=== PATIENT | female | born 1985 | race Caucasian/White ===

== ENCOUNTER 2021-03-13 16:41 | Emergency (ER) | payer BC, SELFPAY ==
[2021-03-13] VITALS (7 sets, daily range): BP systolic 114–140; BP diastolic 69–91; PULSE 76–86; RESP 14–16; TEMP 36.6; O2SAT 94–100
[2021-03-13 18:32] LABS: Hematocrit 46.4 % (37.0-47.0); Hemoglobin 15.3 g/dL (12.0-15.0); Mean Corpuscular Hemoglobin 27.4 pg (26-34); Mean Platelet Volume 10.6 fl (7.4-10.4); Platelet Count Result 178 k/mm3 (150-375); Red Blood Count 5.59 M/mm3 (4.2-5.4); Red Cell Distribution Width 12.7 % (11.5-14.5); White Blood Count 10.3 K/mm3 (4.5-10.0)
--- NOTE | 2021-03-13 18:37 | ED.GENADULT ---
HPI - General Adult General Chief complaint: Nausea/Vomiting/Diarrhea Stated complaint: abdominal pain Time Seen by Provider: 03/13/21 16:51 Source: patient Mode of arrival: ambulatory Limitations: no limitations History of Present Illness HPI narrative: Patient presents for evaluation of GI symptoms as of today. She reports nausea, vomiting, abdominal cramping and diarrhea. She is not sure whether she has had any blood or mucous in the stool. She reports chills and fatigue but denies any fever, urinary symptoms or respiratory symptoms. No recent sick contacts to her knowledge. She did test positive for COVID on 03/01/21, however she states that the fevers and fatigue she was previously experiencing had fully resolved. Her COVID symptoms lasted about three days. She states she did eat some greasy pizza last night and is unsure whether that was contributory to her symptoms. In the past she has had GI symptoms when she consumes similar foods. No recent ETOH use. No hx of abdominal surgeries. Related Data Home Medications Medication Instructions Recorded Confirmed multivitamin 1 tablet PO DAILY 07/30/19 07/30/20 alprazolam 0.5 mg tablet 0.5 mg PO QHS PRN 06/04/20 07/30/20 Allergies Allergy/AdvReac Type Severity Reaction Status Date / Time No Known Allergies Allergy Unknown Verified 07/30/20 08:49 Review of Systems Review of Systems: CONSTITUTIONAL: Reports chills. Denies fever or sweats. EYES: Denies visual changes, redness, or discharge. ENT: Denies rhinorrhea, congestion, sore throat, or otalgia. CARDIOVASCULAR: Denies chest pain, palpitations, or edema. RESPIRATORY: Denies cough or dyspnea. GASTROINTESTINAL: Reports abdominal cramping, nausea, vomiting and diarrhea GENITOURINARY: Denies dysuria or hematuria. SKIN: Denies rash or itching. MUSCULOSKELETAL: Denies back pain, jointy pain, and myalgias NEUROLOGIC: Denies headache, numbness, dizziness, or weakness. PSYCHIATRIC: Denies anxiety or depression. [facility] Past Medical History Medical History Anxiety History of miscarriage x1 Hx of human papillomavirus infection Vaginal delivery x1 Surgical History Surgical History History of colposcopy 2018 negative Family History Family History Grandparent Diabetes mellitus Mother Hypertension Cerebrovascular accident Father Cerebrovascular accident Social History Social History (Updated 03/13/21 @ 18:39 by GERMAN Aguirre, ) Smoking status: Never smoker Smoking end date: 02/21/12 Alcohol intake: never Substance use: never Living arrangements: with family Gender identity (if verbalized by the patient): Female Sexual Orientation (if Verbalized by the Patient): Straight or Heterosexual Spiritual care concerns: No Exam Narrative: GENERAL: Visibly uncomfortable but in no apparent distress HEAD: Normocephalic, atraumatic. EYES: PERRLA and EOMI. ENT: Nares clear, no rhinorrhea or epistaxis. Mucous membranes moist. Oropharynx without tonsillar hypertrophy exudate or other lesions. Bilateral TMs pearly nielsen nonbulging NECK: Supple. No adenopathy or masses. No carotid bruits or JVD CHEST: Clear to auscultation. No respiratory distress. No wheezes rales or rhonchi HEART: Regular rate and rhythm. No murmur heard. Normal peripheral pulses. ABDOMEN: Soft, nontender, nondistended, normal active bowel sounds. EXTREMITIES: Normal range of motion. No edema. SKIN: Warm, dry, no rash. NEURO: No focal deficits. Alert and oriented x3. PSYCH: Normal mood and affect. Course Course Emergency Course: This is a 35-year-old female who presented with complaints of nausea, vomiting, abdominal cramping, diarrhea as of today. Initially recommended labs, CT scan, influenza swab. She was agreeable to labs and influenz
[2021-03-13 18:43] LABS: Alanine Aminotransferase 15 U/L (4-35); Albumin Level 4.3 g/dL (3.5-5.1); Alkaline Phosphatase 57 U/L (38-126); Anion Gap 9 mmol/L (8-16); Aspartate Amino Transferase 23 U/L (14-36); Bilirubin,Total 0.9 mg/dL (0.2-1.3); Blood Urea Nitrogen 17 mg/dL (7-17); Calcium 8.9 mg/dL (8.4-10.2); Carbon Dioxide 25 mmol/L (22-30); Chloride 101 mmol/L (98-107); Estimated CRCL calculation 73 ml/min; Estimated Glomerular Filt Rate > 60; Glucose 107 mg/dL (65-110); Lipase 74 U/L (23-300); Potassium 4.4 mmol/L (3.4-5.0); Sodium 135 mmol/L (137-145)
[2021-03-13 18:59] LABS: Band Neutrophils Percent 4 % (0-6); Monocytes Percent Manual 2 % (3-9); Neutrophils Absolute Manual 9.99 K/mm3 (1.7-7.2); Neutrophils Percent Manual 93 % (46-73); Platelet Estimate Adequate (Adequate); Total Cells Counted 100
[2021-03-13] MEDS: SODIUM CHLORIDE 0.9% IV 1,000 ML 999 ML IV CONT (19:05)
[2021-03-13] MEDS: FAMOTIDINE 20 MG/2 ML VIAL IV PUSH (19:06)
[2021-03-13] MEDS: ONDANSETRON INJ 4 MG/2 ML VIAL IV PUSH (19:06)
[2021-03-13 19:43] LABS: Add Urine Microscopic? YES; Appearance Urine Clear (Clear); Bilirubin Urine Negative (Negative); Blood Urine Negative (Negative); Color Urine Yellow (Yellow); Glucose Urine UA Negative (Negative); Ketones Urine 1+ mg/dL (Negative); Leukocyte Esterase Ur Negative LEU/UL (Negative); Mucus Urine Rare /lpf; Nitrate Urine Negative (Negative); Protein Urine Negative (Negative); RBC Urine 0-2 /hpf (0-2); Specific Grav Ur 1.026 (1.001-1.035); Squamous Epithelial Cell Urine Moderate /hpf (Few); Urobilinogen Urine Negative mg/dL (<2.0); WBC Urine 0-3 /hpf
[2021-03-13] MEDS: DICYCLOMINE HCL INJ 20 MG/2 ML VIAL IM (20:11)
== END 2021-03-13 21:43 | disposition home or self-care (01) ==
PROVIDERS: Emergency Provider Nurse Practitioner; PCP Family Medicine
DX: R11.2 Nausea with vomiting, unspecified (principal); F41.9 Anxiety disorder, unspecified; Z87.891 Personal history of nicotine dependence; Z86.16 Personal history of COVID-19
CPT/HCPCS: 36415; 80053; 81001; 81025; 83690; 85025; 87804; 96361; 96372; 96374; 99284; J0500; J2405; J7030

== ENCOUNTER 2022-05-04 09:55 | Outpatient (RCR) | payer BC, SELFPAY ==
[2022-05-04] MEDS: RHO(D) IMMUNE GLOBULIN 300 MCG/2 ML SYRINGE IM (12:33)
== END 2022-08-02 23:59 | disposition home or self-care (01) ==
LOC: ANHLAB 09:55
PROVIDERS: PCP Family Medicine; Visit Provider Obstetrics & Gynecology
DX: Z29.13 Encounter for prophylactic Rho(D) immune globulin (principal); O36.0190 Maternal care for anti-D [Rh] antibodies, unspecified trimester, not applicable or unspecified; Z3A.00 Weeks of gestation of pregnancy not specified
CPT/HCPCS: 36415; 85461; 86850; 86900; 86901; 90384; 96372; J2790

== ENCOUNTER 2022-07-15 11:27 | Inpatient (IN) | payer BC, SELFPAY ==
[2022-07-15] VITALS (20 sets, daily range): BP systolic 123–156; BP diastolic 80–100; PULSE 81–113; RESP 18; TEMP 36.4–36.6; O2SAT 93–100
[2022-07-15 12:57] LABS: Basophils Percent Auto 0.1 % (0.2-1.2); Eosinophils Absolute Auto 0.1 K/mm3 (0-0.3); Eosinophils Percent Auto 0.5 % (0-4.4); Hematocrit 42.4 % (37.0-47.0); Hemoglobin 14.6 g/dL (12.0-15.0); Immature Granulocyte Absolute 0.06 K/mm3 (0.00-0.031); Immature Granulocyte Percent A 0.4 % (0-0.5); Immature Platelet Fraction Pct 11.1 % (0.9-11.2); Lymphocytes Percent Auto 9.6 % (18.3-44.2); Mean Corpuscular HGB Conc 34.4 g/dl (32-36); Mean Corpuscular Hemoglobin 30.1 pg (26-34); Mean Corpuscular Volume 87.4 fl (80-100); Mean Platelet Volume 11.9 fl (7.4-10.4); Monocytes Absolute Auto 0.8 K/mm3 (0.1-0.6); Monocytes Percent Auto 5.9 % (2.6-8.5); Neutrophils Absolute Auto 11.3 K/mm3 (1.3-6.7); Neutrophils Percent Auto 83.5 % (45.5-73.1); Platelet Count Result 146 k/mm3 (150-375); Red Blood Count 4.85 M/mm3 (4.2-5.4); Red Cell Distribution Width 13.2 % (11.5-14.5); White Blood Count 13.5 K/mm3 (4.5-10.0)
[2022-07-15 13:09] LABS: Creatinine Urine 47.3 mg/dL; Total Protein Urine Random 8 mg/dL; Ur Ttl Prot Creatinine Ratio 0.17 mg/mg (0-0.20)
[2022-07-15] MEDS: LACTATED RINGERS 1,000 ML 125 ML IV CONT (13:09)
[2022-07-15] MEDS: AMPICILLIN 2 GM/NS 100 ML 2 GM/100 ML BAG IVPB (13:10)
[2022-07-15 13:11] LABS: Alanine Aminotransferase 17 U/L (6-35); Alkaline Phosphatase 143 U/L (38-126); Anion Gap 7 mmol/L (8-16); Aspartate Amino Transferase 23 U/L (14-36); Bilirubin,Total 0.5 mg/dL (0.2-1.3); Blood Urea Nitrogen 10 mg/dL (7-17); Calcium 8.8 mg/dL (8.4-10.2); Carbon Dioxide 21 mmol/L (22-30); Chloride 105 mmol/L (98-107); Estimated Glomerular Filt Rate > 60; Glucose 77 mg/dL (65-110); Potassium 4.1 mmol/L (3.4-5.0); Sodium 133 mmol/L (137-145); Uric Acid 3.6 mg/dL (2.5-7.5)
[2022-07-15 13:18] LABS: Appearance Urine Cloudy (Clear); Bacteria Urine None Seen /hpf; Bilirubin Urine Negative (Negative); Blood Urine Negative (Negative); Color Urine Yellow (Yellow); Glucose Urine UA Negative (Negative); Ketones Urine Negative (Negative); Leukocyte Esterase Ur Negative LEU/UL (NEGATIVE); Need Manual Microscopic Reviewed; Nitrate Urine Negative (Negative); Non Pathogenic Casts 0-2; Protein Urine Negative (Negative); RBC Urine 0-2 /hpf (0-2); Squamous Epithelial Cell Urine Occasional /hpf (Few); Urobilinogen Urine 0.2 mg/dL (<2.0); WBC Urine 0-5 /hpf (0-3); pH Urine 7.5 (5.0-9.0)
[2022-07-15 13:24] LABS: Add Urine Microscopic? YES
[2022-07-15] MEDS: AMPICILLIN 1 GM/NS 50 ML 1 GM/50 ML BAG IVPB (17:23)
--- NOTE | 2022-07-15 17:29 | WPDANESEPPF ---
Anes - Initial Pre Proc Eval Procedure: Labor epidural Date/Time: 07/15/22 17:29 Surgeon: Rohan Hermosillo MD Pre Op Diagnosis: Abdominal pain with contractions Pre Op Diagnosis: labor Patient Data Age: 37 Gender: F Height: Weight: Last Vital Signs Pulse 85 07/15/22 14:15 BP 127/87 07/15/22 14:15 O2 Del Method Room Air 07/15/22 11:30 Allergies Allergy/AdvReac Type Severity Reaction Status Date / Time No Known Allergies Allergy Unknown Verified 07/14/22 08:44 Home Medications Medication Instructions Recorded Confirmed Type prenat.vits,dc,jlk-uzce-dzrwx 1 tablet PO DAILY 12/23/21 07/15/22 History aspirin 81 mg tablet,delayed 81 mg PO DAILY 04/21/22 07/15/22 History release Laboratory Tests 07/15/22 12:47 WBC 13.5 H K/mm3 (4.5-10.0) RBC 4.85 M/mm3 (4.2-5.4) Hgb 14.6 g/dL (12.0-15.0) Hct 42.4 % (37.0-47.0) MCV 87.4 fl (80-100) MCH 30.1 pg (26-34) MCHC 34.4 g/dl (32-36) RDW 13.2 % (11.5-14.5) Plt Count 146 L k/mm3 (150-375) MPV 11.9 H fl (7.4-10.4) Immature Gran % (Auto) 0.4 % (0-0.5) Neut % (Auto) 83.5 H % (45.5-73.1) Lymph % (Auto) 9.6 L % (18.3-44.2) [place] % (Auto) 5.9 % (2.6-8.5) Eos % (Auto) 0.5 % (0-4.4) Baso % (Auto) 0.1 L % (0.2-1.2) Lymph # (Auto) 1.30 K/mm3 (0.9-3.2) [place] # (Auto) 0.8 H K/mm3 (0.1-0.6) Eos # (Auto) 0.1 K/mm3 (0-0.3) Baso # (Auto) 0.0 K/mm3 (0.0-0.1) Abs Immat Gran (auto) 0.06 H K/mm3 (0.00-0.031) Absolute Neuts (auto) 11.3 H K/mm3 (1.3-6.7) Absolute Nucleated RBC 0.0 K/mm3 (0.0-0.012) Nucleated RBC % 0.0 % (0.0-0.2) % Immature Plt Fraction 11.1 % (0.9-11.2) Sodium 133 L mmol/L (137-145) Potassium 4.1 mmol/L (3.4-5.0) Chloride 105 mmol/L (98-107) Carbon Dioxide 21 L mmol/L (22-30) Anion Gap 7 L mmol/L (8-16) BUN 10 D mg/dL (7-17) Creatinine 0.50 L mg/dL (0.7-1.0) Estim Creat Clear Calc Not Reportable Estimated GFR > 60 (59 - ) Glucose 77 mg/dL (65-110) Uric Acid 3.6 mg/dL (2.5-7.5) Calcium 8.8 mg/dL (8.4-10.2) Total Bilirubin 0.5 mg/dL (0.2-1.3) AST 23 U/L (14-36) ALT 17 U/L (6-35) Alkaline Phosphatase 143 H U/L (38-126) Total Protein 7.0 g/dL (6.3-8.2) Albumin 4.0 g/dL (3.5-5.1) Urine Color Yellow (Yellow) Urine Appearance Cloudy H (Clear) Urine pH 7.5 (5.0-9.0) Ur Specific [place] 1.010 (1.001-1.035) Urine Protein Negative mg/dL (Negative) Urine Glucose (UA) Negative mg/dL (Negative) Urine Ketones Negative mg/dL (Negative) Ur Blood (Man) Negative (Negative) Urine Nitrate Negative (Negative) Urine Bilirubin Negative (Negative) Urine Urobilinogen 0.2 mg/dL (<2.0) Ur Leukocyte Esterase Negative MAGALIS/UL (NEGATIVE) Add Ur Microanalysis Reviewed Urine RBC 0-2 /hpf (0-2) Urine WBC 0-5 /hpf (0-3) Ur Squamous Epith Cells Occasional /hpf (Few) Urine Bacteria None seen /hpf Urine Casts 0-2 U Random Total Protein 8 mg/dL Urine Creatinine 47.3 mg/dL Protein/Creat Ratio 2 0.17 mg/mg (0-0.20) RPR Pending Blood Type A Negative Antibody Screen Positive Antibody Identification Passive Due to RH Imm Glob Antigen Identification TNP STEFAN, IgG Interpret Not Performed STEFAN, Poly Interpret Negative STEFAN, Complement Interp Not Performed : gestational age HCG: positive Patient hx anesthesia problems: none Family hx anesthesia problems: none Results Review: All pre-operative results and documents have been reviewed as part of the pre-operative evaluation. [facility], LAT[facility] Past Medical History Medical History Anxiety Fractured skull Rhinoplasty and cyst removed from nasal cavity.
--- NOTE | 2022-07-15 19:06 | PM.IMHP ---
H&P: HPI History of Present Illness Date/Time: 07/15/22 19:06 Chief Complaint: Contractions Narrative: She is a 37 y/o at 38 6/7 by LMP 10/16/21 with EDC 07/23/22 consistent with 10 week ultrasound. Patient admitted in labor. Cervix 4/80/-2. PNC significant for advanced maternal age, GBS carrier, prior mild shoulder dystocia, she has been counseled regarding increase risk with subsequent and discussed c/s she declined. The abdominal circumference has been measuring in 90% she has had normal routine glucose testing and then normal 3 hr in third trimester. Review of Systems Review of Systems: All systems reviewed & are unremarkable except as noted in HPI and below Constitutional: Constitutional: Reports no additional constitutional complaints and Denies headache(s) Eyes: Eyes: Denies spots in vision ENT: Reports system reviewed and no additional complaints, except as documented and Denies headache(s) Cardiovascular: Cardiovascular: Denies chest pain and Denies dyspnea Respiratory: Respiratory: Denies dyspnea Gastrointestinal: Gastrointestinal: Reports no additional gastrointestinal complaints Genitourinary: Genitourinary: Reports amenorrhea Musculoskeletal: Musculoskeletal: Reports no additional musculoskeletal complaints Integumentary/Breasts: Skin/Breast: Denies breast mass and Denies rash Neurologic: Denies headache(s) Psychiatric: Psychiatric: Reports no additional psychiatric complaints PMFSH Past Medical History Medical History Anxiety Fractured skull Rhinoplasty and cyst removed from nasal cavity. History of miscarriage x1 History of smoking Hx of human papillomavirus infection and not yet delivered Vaginal delivery x1 Surgical History Surgical History History of colposcopy 2018 negative Family History Family History Grandparent Diabetes mellitus Alcoholism Heart disease Mother Hypertension Cerebrovascular accident Father Cerebrovascular accident Social History Social History Smoking status: Former smoker Tobacco type: cigarettes Smoking end date: 02/21/12 Alcohol intake: never Substance use: never Lack of Transportation: No Lack of Food: Never True Current Housing: I Have Housing Concerned About Future Housing: No Difficulty Paying Gas/Electric Bills: No Difficulty Paying for Meds: No Currently Unemployed: No Education: Bachelor's Degree Difficulty w/ Childcare or Family Care: No Living arrangements: with family Occupation/Education: occupation Gender identity (if verbalized by the patient): Female Sexual Orientation (if Verbalized by the Patient): Straight or Heterosexual Spiritual care concerns: No Meds Home Medications and Allergies Home Medications Medication Instructions Recorded Confirmed Type prenat.vits,dc,xgm-lall-xmreo 1 tablet PO DAILY 12/23/21 07/15/22 History aspirin 81 mg tablet,delayed 81 mg PO DAILY 04/21/22 07/15/22 History release Allergies Allergy/AdvReac Type Severity Reaction Status Date / Time No Known Allergies Allergy Unknown Verified 07/14/22 08:44 Vital Signs Vital Signs - 24 hr 07/15/22 12:56 07/15/22 13:00 07/15/22 13:15 Temperature Pulse Rate 92 81 89 Blood Pressure 128/100 H 123/80 127/91 H Oxygen Delivery 07/15/22 13:30 07/15/22 13:45 07/15/22 14:01 Temperature Pulse Rate 85 83 89 Blood Pressure 123/91 H 133/98 H 127/90 Oxygen Delivery 07/15/22 14:15 07/15/22 16:00 07/15/22 17:59 Temperature 97.8 F Pulse Rate 85 96 Blood Pressure 127/87 123/84 Oxygen Delivery 07/15/22 18:00 07/15/22 11:30 Temperature Pulse Rate 85 Blood Pressure 132/84 Oxygen Delivery Room Air Exam Const:
--- NOTE | 2022-07-15 19:09 | P.PNOB_ITS ---
OB - PN: Subj Subjective Date/time seen: 07/15/22 1340 Cat 1 tracing, irreg ctx, continue expectant management and IV antibiotics. OB - PN: Obj Data Labs 07/15/22 12:47 07/15/22 12:47 Labs: Laboratory Results - last 24 hr 07/15/22 12:47 WBC 13.5 H RBC 4.85 Hgb 14.6 Hct 42.4 MCV 87.4 MCH 30.1 MCHC 34.4 RDW 13.2 Plt Count 146 L MPV 11.9 H Immature Gran % (Auto) 0.4 Neut % (Auto) 83.5 H Lymph % (Auto) 9.6 L [place] % (Auto) 5.9 Eos % (Auto) 0.5 Baso % (Auto) 0.1 L Lymph # (Auto) 1.30 [place] # (Auto) 0.8 H Eos # (Auto) 0.1 Baso # (Auto) 0.0 Abs Immat Gran (auto) 0.06 H Absolute Neuts (auto) 11.3 H Absolute Nucleated RBC 0.0 Nucleated RBC % 0.0 % Immature Plt Fraction 11.1 Sodium 133 L Potassium 4.1 Chloride 105 Carbon Dioxide 21 L Anion Gap 7 L BUN 10 D Creatinine 0.50 L Estim Creat Clear Calc Not Reportable Estimated GFR > 60 Glucose 77 Uric Acid 3.6 Calcium 8.8 Total Bilirubin 0.5 AST 23 ALT 17 Alkaline Phosphatase 143 H Total Protein 7.0 Albumin 4.0 Urine Color Yellow Urine Appearance Cloudy H Urine pH 7.5 Ur Specific [place] 1.010 Urine Protein Negative Urine Glucose (UA) Negative Urine Ketones Negative Ur Blood (Man) Negative Urine Nitrate Negative Urine Bilirubin Negative Urine Urobilinogen 0.2 Ur Leukocyte Esterase Negative Add Ur Microanalysis Reviewed Urine RBC 0-2 Urine WBC 0-5 Ur Squamous Epith Cells Occasional Urine Bacteria None seen Urine Casts 0-2 U Random Total Protein 8 Urine Creatinine 47.3 Protein/Creat Ratio 2 0.17 Blood Type A Negative Antibody Screen Positive Antibody Identification Passive Due to RH Imm Glob Antigen Identification TNP STEFAN, IgG Interpret Not Performed STEFAN, Poly Interpret Negative STEFAN, Complement Interp Not Performed OB - PN A/P Time Spent With Patient Time: Total time spent is greater than 50% in coordination of care (as documented) at patient's floor/unit and/or counseling patient:
--- NOTE | 2022-07-15 19:10 | P.PNOB_ITS ---
OB - PN: Subj Subjective Date/time seen: 07/15/22 19:10 Interval history: FHT 145, Cat 1, irreg ctx. cervix /-2, AROM clear. OB - PN: Obj Data Labs 07/15/22 12:47 07/15/22 12:47 Labs: Laboratory Results - last 24 hr 07/15/22 12:47 WBC 13.5 H RBC 4.85 Hgb 14.6 Hct 42.4 MCV 87.4 MCH 30.1 MCHC 34.4 RDW 13.2 Plt Count 146 L MPV 11.9 H Immature Gran % (Auto) 0.4 Neut % (Auto) 83.5 H Lymph % (Auto) 9.6 L [place] % (Auto) 5.9 Eos % (Auto) 0.5 Baso % (Auto) 0.1 L Lymph # (Auto) 1.30 [place] # (Auto) 0.8 H Eos # (Auto) 0.1 Baso # (Auto) 0.0 Abs Immat Gran (auto) 0.06 H Absolute Neuts (auto) 11.3 H Absolute Nucleated RBC 0.0 Nucleated RBC % 0.0 % Immature Plt Fraction 11.1 Sodium 133 L Potassium 4.1 Chloride 105 Carbon Dioxide 21 L Anion Gap 7 L BUN 10 D Creatinine 0.50 L Estim Creat Clear Calc Not Reportable Estimated GFR > 60 Glucose 77 Uric Acid 3.6 Calcium 8.8 Total Bilirubin 0.5 AST 23 ALT 17 Alkaline Phosphatase 143 H Total Protein 7.0 Albumin 4.0 Urine Color Yellow Urine Appearance Cloudy H Urine pH 7.5 Ur Specific [place] 1.010 Urine Protein Negative Urine Glucose (UA) Negative Urine Ketones Negative Ur Blood (Man) Negative Urine Nitrate Negative Urine Bilirubin Negative Urine Urobilinogen 0.2 Ur Leukocyte Esterase Negative Add Ur Microanalysis Reviewed Urine RBC 0-2 Urine WBC 0-5 Ur Squamous Epith Cells Occasional Urine Bacteria None seen Urine Casts 0-2 U Random Total Protein 8 Urine Creatinine 47.3 Protein/Creat Ratio 2 0.17 Blood Type A Negative Antibody Screen Positive Antibody Identification Passive Due to RH Imm Glob Antigen Identification TNP STEFAN, IgG Interpret Not Performed STEFAN, Poly Interpret Negative STEFAN, Complement Interp Not Performed OB - PN A/P Time Spent With Patient Time: Total time spent is greater than 50% in coordination of care (as documented) at patient's floor/unit and/or counseling patient:
[2022-07-15] MEDS: OXYTOCIN 30 UNITS/NS 500 ML 30 UNITS/500 ML BAG 999 UNITS IV CONT (19:57)
--- NOTE | 2022-07-15 20:19 | P.PCNOB_ITS ---
OB - Delivery Note Procedure Delivery date: 07/15/22 Procedure: Spontaneous vaginal delivery Events: Positive Group B Strep (GBS) Delivery augmentation: Rupture of Membranes Delivery monitor: External FHT Route of delivery: Laceration Description: Perineal - 2nd Degree Delivery repair: vicryl (3.0 vicryl) Specimen: No Quantitative Blood Loss (ml): 300 Anesthesia type: Local Disposition: Floor Complications: Mild shoulder dystocia relieved with Modified Fatmata position. Narrative: She presented in active labor. She received two doses of Ampicillin. Assisted rupture of membranes with clear fluid at 5. She progressed rapidly to active labor and complete. Infant's head delivered and legs were placed into modified Fatmata when a nterior shoulder did not present spontaneously and then shoulder delivered. There was a right compound hand presentation. The rest of the delivered. Nose and mouth suctioned. Infant vigorously crying and placed on maternal abdomen. Delayed cord clamping for 40 sec and then cord doubly clamped and cut. Pitocin started. Placenta delivered spontaneously and intact. Second degree perineal laceration repaired with 3.0 vicryl. Baby Date of : 07/15/22 Time of : 19:52 Weeks of gestation at delivery: 39 gender: Male Weight (pounds): 7 Weight (ounces): 14 presentation: vertex position: Left Occiput Anterior Placenta delivery description: Spontaneous Cord Vessel Description: 3 Vessels, Clamped/Cut and Delayed Cord Clamping score one minute: 7 score five minutes: 9 AMG Delivery Billing Delivery Delivery: Delivery Charge
[2022-07-15] MEDS: OXYTOCIN 30 UNITS/NS 500 ML 30 UNITS/500 ML BAG 125 UNITS IV CONT (20:33)
[2022-07-16 03:00] VITALS: BP 136/98; PULSE 101; RESP 18; TEMP 37; O2SAT 100
[2022-07-16] MEDS: IBUPROFEN 600 MG TABLET PO ×3 (03:22→20:38)
[2022-07-16 05:43] LABS: Hematocrit 37.1 % (37.0-47.0); Hemoglobin 12.4 g/dL (12.0-15.0)
[2022-07-16 08:00] VITALS: BP 123/81; PULSE 93; RESP 16; TEMP 36.3; O2SAT 99
--- NOTE | 2022-07-16 10:47 | PM.OBPNVD ---
OB - PN: Subj Subjective Date/time seen: 07/16/22 10:47 S: patient doing well this morning with minimal bleeding, pain well controlled. is going well though recent feeding was slow and delayed. Otherwise she is doing well. O: Vital signs stable afebrile Abdomen positive bowel sounds soft uterus mildly tender A: day 1. Status post vaginal delivery P: Routine care. Circumcision later today or tomorrow prior to discharge. Interval history: FHT 145, Cat 1, irreg ctx. cervix 5/80/-2, AROM clear. OB - PN: Obj Data Labs 07/16/22 03:30 07/15/22 12:47 Labs: Laboratory Results - last 24 hr 07/15/22 07/16/22 12:47 03:30 WBC 13.5 H RBC 4.85 Hgb 14.6 12.4 Hct 42.4 37.1 MCV 87.4 MCH 30.1 MCHC 34.4 RDW 13.2 Plt Count 146 L MPV 11.9 H Immature Gran % (Auto) 0.4 Neut % (Auto) 83.5 H Lymph % (Auto) 9.6 L [place] % (Auto) 5.9 Eos % (Auto) 0.5 Baso % (Auto) 0.1 L Lymph # (Auto) 1.30 [place] # (Auto) 0.8 H Eos # (Auto) 0.1 Baso # (Auto) 0.0 Abs Immat Gran (auto) 0.06 H Absolute Neuts (auto) 11.3 H Absolute Nucleated RBC 0.0 Nucleated RBC % 0.0 % Immature Plt Fraction 11.1 Sodium 133 L Potassium 4.1 Chloride 105 Carbon Dioxide 21 L Anion Gap 7 L BUN 10 D Creatinine 0.50 L Estim Creat Clear Calc Not Reportable Estimated GFR > 60 Glucose 77 Uric Acid 3.6 Calcium 8.8 Total Bilirubin 0.5 AST 23 ALT 17 Alkaline Phosphatase 143 H Total Protein 7.0 Albumin 4.0 Urine Color Yellow Urine Appearance Cloudy H Urine pH 7.5 Ur Specific [place] 1.010 Urine Protein Negative Urine Glucose (UA) Negative Urine Ketones Negative Ur Blood (Man) Negative Urine Nitrate Negative Urine Bilirubin Negative Urine Urobilinogen 0.2 Ur Leukocyte Esterase Negative Add Ur Microanalysis Reviewed Urine RBC 0-2 Urine WBC 0-5 Ur Squamous Epith Cells Occasional Urine Bacteria None seen Urine Casts 0-2 U Random Total Protein 8 Urine Creatinine 47.3 Protein/Creat Ratio 2 0.17 Blood Type A Negative Antibody Screen Positive Antibody Identification Passive Due to RH Imm Glob Antigen Identification TNP STEFAN, IgG Interpret Not Performed STEFAN, Poly Interpret Negative STEFAN, Complement Interp Not Performed OB - PN A/P Time Spent With Patient Time: Total time spent is greater than 50% in coordination of care (as documented) at patient's floor/unit and/or counseling patient:
[2022-07-16 12:30] VITALS: BP 122/91; PULSE 88; RESP 16; TEMP 36.5; O2SAT 99
[2022-07-16] MEDS: DOCUSATE SODIUM 100 MG CAPSULE PO (12:38)
[2022-07-16] MEDS: MULTIVIT/MIN/PREN/FOL AC/IRON TABLET 1 TAB PO (12:38)
[2022-07-16 21:00] VITALS: BP 128/92; PULSE 85; RESP 18; TEMP 36.5; O2SAT 97
[2022-07-17] MEDS: IBUPROFEN 600 MG TABLET PO ×2 (03:45→13:35)
[2022-07-17 08:00] VITALS: BP 117/87; PULSE 91; RESP 16; TEMP 36.7; O2SAT 98
--- NOTE | 2022-07-17 08:33 | P.DS_ITS ---
DS: Admitting Diagnosis Discharge Date 07/17/2022 Admitting Diagnosis DS: Discharge Diagnosis Discharge Diagnosis (1) , delivered: Code(s): O80 - Encounter for full-term uncomplicated delivery Status: Acute OB - DS: Summary OB Procedures : None OB Procedures Intrapartum: Spontaneous Vag Delivery OB Procedures: : None Time Spent with Patient Time attestation: Total time spent providing and/or coordinating discharge services: Discharge Plan Discharge Discharging Clinician: Sarwat Sun Patient Disposition: Home, Self-Care Activity: as tolerated Diet: as tolerated Patient Instructions: Antibiotic Form Stand Alone Forms: General Discharge Information Follow-up/Referrals: Rohan Hermosillo MD [Physician] - 3 Weeks Discharge Medications: New ibuprofen 600 mg Tablet 600 mg PO Q6H PRN (Reason: Cramping) Qty: 30 0RF Continued prenat.vits,dc,wyd-ntor-yspry Tablet 1 tablet PO DAILY Discontinued aspirin 81 mg tablet,delayed release (DR/EC) 81 mg PO DAILY Date of admission: 07/15/22 11:27 Primary Care Provider: PHYSICIAN,SUPERVISOR SH[employer]TLE [employer]ING Admitting Provider: Rohan Hermosillo Attending physician on admission: Rohan Hermsoillo Condition: Stable
[2022-07-17] MEDS: DOCUSATE SODIUM 100 MG CAPSULE PO (10:43)
[2022-07-17] MEDS: MULTIVIT/MIN/PREN/FOL AC/IRON TABLET 1 TAB PO (10:43)
--- NOTE | 2022-07-17 12:18 | PC.NURSE ---
Patient was given the opportunity to view the discharge video Mother & Baby Care, The First Two Weeks and to ask questions. Patient declined viewing the video and has been given the mother/baby guide for home reference.
[2022-07-17] MEDS: MEASLES,MUMPS,RUBELLA VACCINE 0.5 ML VIAL SUB-Q (13:05)
[2022-07-17] MEDS: ACETAMINOPHEN 325 MG TABLET 650 MG PO (13:35)
[2022-07-18 11:48] LABS: Rapid Plasma Reagin Non-Reactive (NonReactive)
== END 2022-07-17 14:25 | disposition home or self-care (01) | DRG 807 ==
LOC: ANHOB2 07-17 12:23 → ANHLDR 07-20 09:25 → ANHOB2 07-20 09:25
PROVIDERS: Admitting Provider Obstetrics & Gynecology; Visit Provider Obstetrics & Gynecology
DX: O99.824 Streptococcus B carrier state complicating childbirth (principal); Z37.0 Single live birth; Z3A.38 38 weeks gestation of pregnancy; O32.6XX0 Maternal care for compound presentation, not applicable or unspecified; O70.1 Second degree perineal laceration during delivery; O66.0 Obstructed labor due to shoulder dystocia
CPT/HCPCS: 36415; 80053; 81001; 82570; 84156; 84550; 85014; 85018; 85025; 85055; 86592; 86850; 86880; 86900; 86901; 86902; 87077; 87086; 87088; 90710; A9270; J0290; J2590; J2795; J7120

== ENCOUNTER 2022-07-25 11:00 | Outpatient (RCR) | payer BC, SELFPAY ==
--- NOTE | 2022-07-25 08:29 | PC.NURSE ---
In- 1222 Out- 1400 Reason for visit: Latch issues History: mother delivered spontaneously without an epidural. There was no induction, augmentation with AROM, QBL 300, with a mild shoulder dystocia charted. Mother was GBS positive with two doses of Ampicillin prior to delivery. (History obtained from inpatient charting and mother) History: Infant was born vaginally with mild shoulder dystocia and facial bruising at 1952. weight was obtained at 2049. Infant was born with + tight lingual frenulum per Dr. Pillai and is one day post frenulectomy. In the hospital was attempted to breastfeed, syringe fed colostrum and Enfamil at times. Mother hand expressed colostrum and was charted as unable, fair, good at different times. (History obtained from inpatient charting and mother) Observations: Mother works well with her . Mother latches infant with no pain even though her nipples have healing scabs from earlier . Mother was encouraged to optimize with latching with a big, open, wide gape using gentle breast compressions to encourage milk swallows keeping infant actively . There is no nipple misshaping after the . weight: 3570g 7-13.9 Lowest weight: 3376g 7-7.1 at discharge Last weight: There is no follow up weight as mother cancelled appt. Mother states the last weight was on 07/22/22 at the [facility] office of 7lbs - 7oz. Pre-feed weight: 3369g (7-6.8) right breast/ left breast 3384g Post-feed weight: 3384g (7-7.3) right breast/ left breast 3396g Plan of Care: Discussed with mother the amount of breast milk per feed that would be appropriate for weight gain and growth. Reviewed with mother the concern for the milk supply and how to improve and protect the supply. Mother states she has been her infant with no pain since yesterday and the Housekeeper/Custodian/Laundry Worker is good with the weight gain at this time. Reviewed frequency 8-12 times in 24 hours with 1-2 times at night, on demand feeding to optimize encouraging milk production, practice for infant with the new frenulectomy, and more swallows at the breast. is content with hands open after and mother is willing to put back to the breast on demand. The color of the is appropriate for age and race with appropriate output. Mother voiced understanding of waking to breastfeed, to call ICP if has a temperature of 100.4, no stool for 24-48 hours, doesn't wake for two consecutive feedings, supplement if needed with formula and to use a pump to protect the milk supply if is not effectively . Follow up plans: Mother plans to follow-up on Monday for a weighted breastfeed with RN and is ready to end the appt at this time.
--- NOTE | 2022-07-25 12:31 | PC.NURSE ---
[id number] Mother came in with questions and concerns related to and her getting enough. Pre weight - 3286g (7-3.9) On Monday the had gained weight, however, mother did not have adequate breast milk at the feeding session at the hospital. Reviewed milk production, signs of adequate intake, output, and supplementation as needed was discussed. Mother states she has been every 2-3 hours in a 24 hour period. Discussed the concern of the weight loss rather than weight gain. Mother was instructed on paced bottle feeding as she was concerned regarding supplementing with a bottle leading to nipple confusion. Mother voiced understanding that the infant needs supplementation related to her supply has not increased over the weekend to meet the infant's growing needs. Mother did not want to stay to breastfeed with a post feed weight but rather chooses to go home to feed her since she lives close. Reviewed with mother to breastfeed, supplement with formula, and protect her milk supply with pumping, however; mother is not sure when she will have the time. Reviewed with mother that if infant is eating every 3 hours, if possible do 1-4 pumping sessions throughout the 24 hours with 1-2 pumps or breastfeed at night instead of pumping after each breastfeed. Discussed feeding infant balancing with self care. support offered if needed at a later date. Mother stated she was going to call the Photoengraving Photographer's office for a weight check this week.
== END 2022-10-20 23:59 | disposition home or self-care (01) ==
LOC: ANHOBOP 11:00
PROVIDERS: Visit Provider Pediatrics
DX: Z39.1 Encounter for care and examination of lactating mother (principal)
CPT/HCPCS: 99211; 99214; G0463

== ENCOUNTER → 2022-10-20 13:30 | Outpatient (CLI) | payer BC, SELFPAY ==
--- NOTE | ~2022-10-20 | US_ITS ---
EXAMINATION: US thyroid DATE: 10/20/2022 13:45 INDICATION: Nontoxic goiter, unspecified. TECHNIQUE: Multiple ultrasound images of the thyroid were obtained. COMPARISON: None. FINDINGS: The right thyroid lobe measures 4.9 x 1.7 x 1.6 cm. The left thyroid lobe measures 4.5 x 1.6 x 1.7 c m. There is normal echotexture and echogenicity throughout the thyroid gland. No discrete nodules id entified. Normal vascular flow is present. IMPRESSION: 1. Normal thyroid. Reviewed, dictated and finalized at location E. IMPRESSION: 1. Normal thyroid.
== END ==
PROVIDERS: PCP Registered Nurse; Visit Provider Registered Nurse
DX: E04.9 Nontoxic goiter, unspecified (principal)
CPT/HCPCS: 76536

== ENCOUNTER 2023-04-09 08:17 | Emergency (ER) | payer BC, SELFPAY ==
[2023-04-09 08:28] VITALS: BP 125/100; PULSE 73; RESP 16; TEMP 36.8; O2SAT 100
--- NOTE | 2023-04-09 08:54 | ED.URI ---
HPI - URI/Sore Throat General Chief Complaint: Upper Respiratory Infection Stated Complaint: Sore Throat;Cough Source: patient, RN notes reviewed and old records reviewed Mode of arrival: ambulatory Limitations: no limitations History of Present Illness HPI Narrative: 37-year-old female presents to [facility] with complaints cough, congestion, nausea, sore throat, myalgia , fatigue that started Monday. Patient states his return from vacation. Patient taking emol-[id number] medications with little relief. Patient denies chest pain, dizziness, weakness, shortness of breath. Related Data Allergies Allergy/AdvReac Type Severity Reaction Status Date / Time No Known Allergies Allergy Unknown Verified 10/18/22 10:09 Review of Systems Constitutional: Constitutional: Reports no additional constitutional complaints, Reports body ache(s), Denies chills, Reports fatigue, Denies fever(s) and Denies headache(s) Eyes: Eyes: Reports no additional eye complaints and Denies blurry vision ENT: Reports system reviewed and no additional complaints, except as documented, Denies vertigo, Denies dizziness, Denies ear discharge, Denies otalgia, Denies facial pain, Denies headache(s), Reports nasal congestion, Denies nasal discharge, Denies sinus pain, Reports sinus pressure and Reports sore throat Cardiovascular: Cardiovascular: Reports no additional cardiovascular complaints, Denies chest pain, Denies chest pain at rest, Denies rapid heart rate and Denies dyspnea Respiratory: Respiratory: Reports no additional respiratory complaints, Reports chest congestion, Reports cough, Denies pain on inspiration, Denies pain with cough and Denies dyspnea Gastrointestinal: Gastrointestinal: Denies abdominal pain, Denies diarrhea, Denies nausea and Denies vomiting Integumentary/Breasts: Skin/Breast: Denies rash Neurologic: Reports system reviewed and no additional complaints, except as documented, Denies vertigo, Denies dizziness and Denies headache(s) Endocrine: Endocrine: Denies fatigue PMFSH Past Medical History Medical History Anxiety Fractured skull Rhinoplasty and cyst removed from nasal cavity. History of miscarriage x1 History of smoking Hx of human papillomavirus infection and not yet delivered Vaginal delivery x1 Surgical History Surgical History History of colposcopy 2018 negative Family History Family History Grandparent Diabetes mellitus Alcoholism Heart disease Mother Hypertension Cerebrovascular accident Father Cerebrovascular accident Social History Social History Smoking status: Former smoker Tobacco type: cigarettes Smoking end date: 02/21/12 Alcohol intake: never Substance use: never Lack of Transportation: No Lack of Food: Never True Current Housing: I Have Housing Concerned About Future Housing: No Difficulty Paying Gas/Electric Bills: No Difficulty Paying for Meds: No Currently Unemployed: No Education: Bachelor's Degree Difficulty w/ Childcare or Family Care: No Living arrangements: with family Occupation/Education: occupation Gender identity (if verbalized by the patient): Female Sexual Orientation (if Verbalized by the Patient): Straight or Heterosexual Spiritual care concerns: No Comments At the time of my signature, I reviewed and agree with the nursing past medical, surgical, social, and family history. There is no relevant family history pertinent to the patient complaint. Exam Const: General: cooperative, healthy appearing, no acute distress and well nourished Nutritional Appearance: well nourished Orientation/consciousness: patient oriented x3 Limitations: no limitations HENMT: Head: normal to inspection and normoceph
== END 2023-04-09 09:00 | disposition home or self-care (01) ==
PROVIDERS: Emergency Provider Registered Nurse; PCP Family Medicine
DX: B34.9 Viral infection, unspecified (principal); Z87.891 Personal history of nicotine dependence; Z79.899 Other long term (current) drug therapy; Z20.822 Contact with and (suspected) exposure to COVID-19
CPT/HCPCS: 87081; 87426; 87804; 87880; 99213; G0463

== ENCOUNTER 2024-06-04 12:35 | Outpatient (CLI) | payer BC, SELFPAY ==
--- NOTE | ~2024-06-04 | MM_ITS ---
EXAMINATION: MM screening dequan BI w sonal HISTORY: Screening TECHNIQUE: Craniocaudal and mediolateral oblique 3-D tomosynthesis images were obtained and synthetic 2-D images were generated. CAD analysis was submitted and interpreted. COMPARISON: No prior mammogram is available for comparison at this institution. BREAST PARENCHYMAL COMPOSITION: Dense: The breasts are extremely dense, which lowers the sensitivity of mammography. FINDINGS: There is a focal asymmetry laterally in the left breast, middle third. There is no mammogra phic evidence for malignancy in the right breast. IMPRESSION: 1. Left breast asymmetry. 2. Additional mammographic views and possible breast ultrasound are recommended. BI-RADS Category 0: Incomplete: Needs additional imaging evaluation. Reviewed, dictated and finalized at location B. IMPRESSION: 1. Left breast asymmetry. 2. Additional mammographic views and possible breast ultrasound are recommended . BI-RADS Category 0: Incomplete: Needs additional imaging evaluation.
--- OUTSIDE RECORDS SUMMARY | 2024-06-04 13:25 | XMS_ITS | Clinical Summary ---
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) Etiology 07/26/2013 DEA KAUR NP-BC Active Last Documented On 4 11:10AM ; [facility] Previous Colposcopy 04/16/2012 DEA KAUR PERSONAL LOAN SPECIALIST-BC Active Last Documented On 3 8:55AM ; [facility] Plan of Treatment No Plan of Treatment Recorded Assessments Includes: Assessments from this encounter No Assessments Recorded Medical Equipment - Implanted Devices Includes: Current Devices No Medical Equipment Recorded Medications Includes: Medications discussed during this encounter and other current Medications Current Medications (continue as prescribed) Ambien 5 MG Tablet 03/11/2015 Provider: Diagnosis: Last Documented On 03/11/2015 9:37AM By Divina BRITT ; [facility] Past Medications on file Benzonatate 200MG Oral Capsule 02/03/2017 - 02/13/2017 Provider: PAT PARKER [facility]- JOB ANALYSIS MANAGER-BC Diagnosis: Acute sinusitis, unspecified TID PRN cough Last Documented On 7 8:30AM By PAT PARKER JOB ANALYSIS MANAGER- ; [facility] Augmentin 875-125MG Oral Tablet 02/03/2017 - 02/13/2017 Provider: [facility]ER [facility] Diagnosis: Acute sinusitis, unspecified One tablet twice a day Last Documented On 7 8:30AM By PAT PARKER [facility] ; [facility] Flonase Allergy Relief 50 MCG/ACT Suspension 03/11/2015 - 04/10/2015 Provider: ADALBERTO MOTTA D.O. Diagnosis: Oth viral agents as the cause of diseases classd elswhr 2 sprays each nostril q day Last Documented On 03/11/2015 10:12AM By NICOLE BRITT ; [facility] CeleXA 10 MG Tablet 03/11/2015 - 04/10/2015 Provider: ADALBERTO MOTTA D.O. Diagnosis: Anxiety disorder due to known physiological condition One tablet daily Last Documented On 03/11/2015 10:13AM By NICOLE BRITT ; [facility] Amoxicillin 500 MG Capsule 11/05/2014 - 11/19/2014 Pro vider: ADALBERTO MOTTA D.O. Diagnosis: One tablet three times a day Last Documented On 11/05/2014 10:30AM By ADALBERTO MOTTA DO ; [facility] Zolpidem Tartrate 10 MG Tablet 10/28/2014 - 11/27/2014 Provider: ADALBERTO MOTTA D.O. Diagnosis: PERSISTENT INSOM HARISH 1 PO QHS USE SPARINGLY,MUST LAST 30 DAYS Last Documented On 10/28/2014 2:29PM By ADALBERTO MOTTA DO ; [facility] Amoxicillin 500 MG OR TABS 02/26/2014 - 03/12/2014 Pro vider: ADALBERTO MOTTA D.O. Diagnosis: Last Documented On 02/26/2014 7:33PM By RADHAMES BRITT ; [facility] Medications Administered Includes: Administered Medications from this encounter No Administered Medications Recorded Results Includes: Results discussed during this encounter No Results Recorded For Specified Dates History of Present Illness Includes: History of Present Illness from this encounter No History of Present Illness Recorded Social History No Social History Recorded - Smoking Status Unknown Medical History Includes: Medical History addressed during this encounter No Medical History Recorded Family History Includes: Family History addressed during this encounter No Family History Recorded Review of Systems Includes: Review of Systems from this encounter No Review of Systems Recorded Mental Status Includes: Mental Status from this encounter No Mental Status Recorded Functional Status Includes: Functional Status from this encounter No Functional Status Recorded Physical Exam Includes: Physical Exam from this encounter No Physical Exam Recorded Allergies Includes: Active Allergies No Known Allergies Encounters Encounter Provider Location Date Check-In Time Check-Out Time Diagnosis * PHONE CALL DEA KAUR [facility] 8 1:06PM 11:59PM Insurance Includes: Active Insurance Policies Plan Name Member ID Group # Subscriber Relationship Effect colin Dates 1 - [facility] [id number] MARKEL BELLE Self Clinical Notes Includes: Clinical Notes from this encounter No Clinical Notes Recorded
--- OUTSIDE RECORDS SUMMARY | 2024-06-04 13:25 | XMS_ITS | Clinical Summary ---
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) Etiology 07/26/2013 DEA KAUR NP-BC Active Last Documented On 4 11:10AM ; [facility] Previous Colposcopy 04/16/2012 DEA KAUR MONUMENT MASON-BC Active Last Documented On 3 8:55AM ; [facility] Plan of Treatment - Clinical summary provided to patient - Last Documented On 10/05/2017 9:36AM ; [facility] Pending Tests Order Diagnosis Results Due Ordering P rovider Lab TISSUE, 2 SPECIMENS 10/12/17 DEA KAUR NP-BC Last Documented On 8 9:46AM ; [facility] Education and Decision Aids were provided during visit for: INFORMED CONSENT DISCUSSION: Colposcopy was discussed in detail including risk of post procedure bleeding. Patient is not to have intercourse for 2 weeks following the procedure. Patient expressed understanding of the above and consented to the procedure Last Documented On 8 9:11AM ; [facility] Assessments Includes: Assessments from this encounter Findings - Cervical high risk human papilloma virus DNA test was positive - Last Documented On 10/05/2017 9:36AM ; [facility] Instructions Includes: Instructions from this encounter Education and Decision Aids were provided during visit for: INFORMED CONSENT DISCUSSION: Colposcopy was discussed in detail including risk of post procedure bleeding. Patient is not to have intercourse for 2 weeks following the procedure. Patient expressed understanding of the above and consented to the procedure Last Documented On 8 9:11AM ; [facility] Medical Equipment - Implanted Devices Includes: Current Devices No Medical Equipment Recorded Medications Includes: Medications discussed during this encounter and other current Medications Current Medications (continue as prescribed) Ambien 5 MG Tablet 03/11/2015 Provider: Diagnosis: Last Documented On 03/11/2015 9:37AM By Divina BRITT ; [facility] Past Medications on file Benzonatate 200MG Oral Capsule 02/03/2017 - 02/13/2017 Provider: [facility]ER [facility] Diagnosis: Acute sinusitis, unspecified TID PRN cough Last Documented On 7 8:30AM By PAT PARKER [facility] ; [facility] Augmentin 875-125MG Oral Tablet 02/03/2017 - 02/13/2017 Provider: PAT PARKER [facility] Diagnosis: Acute sinusitis, unspecified One tablet twice a day Last Documented On 7 8:30AM By PAT PARKER [facility] ; [facility] Flonase Allergy Relief 50 MCG/ACT Suspension 03/11/2015 - 04/10/2015 Provider: ADALBERTO THACKER D.O. Diagnosis: Oth viral agents as the cause of diseases classd elswhr 2 sprays each nostril q day Last Documented On 03/11/2015 10:12AM By NICOLE BRITT ; [facility] CeleXA 10 MG Tablet 03/11/2015 - 04/10/2015 Provider: ADALBERTO THACKER D.O. Diagnosis: Anxiety disorder due to known physiological condition One tablet daily Last Documented On 03/11/2015 10:13AM By NIOCLE BRITT ; [facility] Amoxicillin 500 MG Capsule 11/05/2014 - 11/19/2014 Pro vider: ADALBERTO THACKER D.O. Diagnosis: One tablet three times a day Last Documented On 11/05/2014 10:30AM By ADALBERTO BRADY [facility] Zolpidem Tartrate 10 MG Tablet 10/28/2014 - 11/27/2014 Provider: ADALBERTO THACKER D.O. Diagnosis: PERSISTENT INSOM HARISH 1 PO QHS USE SPARINGLY,MUST LAST 30 DAYS Last Documented On 10/28/2014 2:29PM By ADALBERTO THACKER DO ; [facility] Amoxicillin 500 MG OR TABS 02/26/2014 - 03/12/2014 Pro vider: ADALBERTO THACKER D.O. Diagnosis: Last Documented On 02/26/2014 7:33PM By RADHAMES BRITT ; [facility] Medications Administered Includes: Administered Medications from this encounter No Administered Medications Recorded Vital Signs Includes: Vital Signs from this encounter Vital Name 10/05/2017 09:17A 10/05/2017 09: 11A Blood Pressure Sitting L 114/72 BP Cuff Size Regular Height (in) 64 64 Weight (lb) 142 Body Mass Index (kg/m2) 24.4 Body Surface Area (m2) 1.7 Last Documented: On 10/05/2017 9:19AM ; [facility] On 10/05/2017 9:11AM ; [facility] Results Includes: Results discussed during this encounter No Results Recorded For Specified Dates History of Present Illness Includes: History of Present Illness from this encounter VINNY BELLE is a 32 year old female. - Medication list reviewed - PRIMARY CARE PROVIDER : Dr Thacker Social History Description Last Updated In monogamous relationship 10/05/2017 Last Documented On 8 9:36AM ; [facility] Not using drugs 10/05/2017 Last Documented On 8 9:36AM ; [facility] Smoking status : Former smoker 8 Last Documented On 8 9:36AM ; [facility] Alcohol use seldom 08/28/2017 Last Documented On 8 9:11AM ; [facility] Non-smoker 08/28/2017 Last Documented On 8 9:11AM ; [facility] Sexually active with 1 partners in the l ast year 08/28/2017 Last Documented On 8 9:11AM ; [facility] Social history unchanged 08/28/2017 Last Documented On 8 9:11AM ; [facility] Procedures and Surgical History Includes: Procedures from this encounter Procedures Code Diagnosis Performing Provider Service L ocation Service Date colposcopy of cervix The patient was placed in the dorsal lithotomy position and a vaginal speculum was inserted. Acetic acid (5%) was applied to the cervix. Biopsies were performed. An ECC was done. Monsel's solution was applied as needed to the cervix via a long swab. EBL = minimal. Complications: none. Specimen(s) send to pathology: Patient was given the Colposcopy post-procedure instruction sheet. Follow-up visit will be in 2 weeks. The pathology results will be reviewed at that time [id number] Last Documented On 8 9:11AM ; [facility] test was negative Last Documented On 8 9:11AM ; [facility] a cervical colposcopy with b iopsy(s) with endocervical curettage was performed The patient was placed in the dorsal lithotomy position and a vaginal speculum was inserted. Acetic acid (5%) was applied to the cervix. Biopsies were performed. An ECC was done. Monsel's solution was applied as needed to the cervix via a long swab. EBL = minimal. Complications: none. Specimen(s) send to pathology: Patient was given the Colposcopy post-procedure instruction sheet. Follow-up visit will be in 2 weeks. The pathology results will be reviewed at that time [id number] Last Documented On 8 9:11AM ; [facility] Surgical History Last Updated Surgical / procedural history Nose surge ry 2009 07/12/2016 Last Documented On 8 9:11AM ; [facility] Medical History Includes: Medical History addressed during this encounter Description Last Updated LMP: 09/16/2017 10/05/2017 Last Documented On 8 9:36AM ; [facility] History of Pap smear done 08/28/201709/20 Last Documented On 8 9:36AM ; [facility] History of human papilloma virus infecti on 08/28/2017 Last Documented On 8 9:11AM ; [facility] No recent change in medical history 10/2017 Last Documented On 8 9:11AM ; [facility] Sexually active 08/28/2017 Last Documented On 8 9:11AM ; [facility] Contraception: condoms 08/28/2017 Last Documented On 8 9:11AM ; [facility] Result: normal positive hpv 08/28/2017 Last Documented On 8 9:11AM ; [facility] Previous hospitalizations HEAD INJURY Last Documented On 8 9:11AM ; [facility] Family History Includes: Family History addressed during this encounter Description Last Updated Family history unchanged 08/28/2017 Last Documented On 8 9:11AM ; [facility] Maternal history of hypertension MOM 10/2017 Last Documented On 8 9:11AM ; [facility] Maternal history of pure hypercholestero lemia both sides 08/28/2017 Last Documented On 8 9:11AM ; [facility] Paternal grandmother's history of diabet es mellitus paternal grandparents 08/28/2017 Last Documented On 8 9:11AM ; [facility] Paternal history of family h istory of heart disease both sides-grandparetns,parents 08/28/2017 Last Documented On 8 9:11AM ; [facility] Spouse name: Rod 07/26/2013 Last Documented On 8 9:11AM ; [facility] Family history of heart disease both angella es 07/26/2013 Last Documented On 8 9:11AM ; [facility] Family history of hypercholesterolemia b oth sides 07/26/2013 Last Documented On 8 9:11AM ; [facility] Family history of hypertension MOM 04/16 Last Documented On 8 9:11AM ; [facility] Father CVA 01/23/2009 Last Documented On 8 9:11AM ; [facility] Cancer 07/28/2008 Last Documented On 8 9:11AM ; [facility] Review of Systems Includes: Review of Systems from this encounter No Review of Systems Recorded Mental Status Includes: Mental Status from this encounter No Mental Status Recorded Functional Status Includes: Functional Status from this encounter No Functional Status Recorded Physical Exam Includes: Physical Exam from this encounter Allergies Includes: Active Allergies No Known Allergies Encounters Encounter Provider Location Date Check-In Time Check-Out Time Diagnosis COLPOSCOPY DEA KAUR [facility] HARDWARE SUPPLIES SALES REPRESENTATIVE 8 9:05AM 9:39AM Assessment of Cervical High Risk Human Papilloma Virus Dna Test Insurance Includes: Active Insurance Policies Plan Name Member ID Group # Subscriber Relationship Effect colin Dates 1 - [facility] [id number] MARKEL BELLE Self Clinical Notes Includes: Clinical Notes from this encounter No Clinical Notes Recorded
--- OUTSIDE RECORDS SUMMARY | 2024-06-04 13:25 | XMS_ITS ---
Care Plan - [facility] Created on: June 04, 2024 MARKEL BELLE : 1985 Sex: Female Author Organization [facility] Address [address] [place] [address] Phone Care Team Providers Care Flag Signalman Name Role Phone ADALBERTO MOTTA DO Primary Care Provider [phone] PHOENIX MONTILLA MD Unavailable [phone]
--- OUTSIDE RECORDS SUMMARY | 2024-06-04 13:25 | XMS_ITS | Clinical Summary ---
Author Organization [facility] Address [address] [place] [address] Phone Care Team Providers Care Cartographic Engineer Name Role Phone ADALBERTO MOTTA DO Primary Care Provider [phone] PHOENIX MONTILLA MD Unavailable [phone] Reason for Visit and Chief Complaint The patient presents for a problem. - The Chief Complaint is: Sab follow up Problems Includes: Problems addressed during this encounter and other active Problems All Visits Onset Date Resolved Date Provider Condition S tatus Anxiety Disorder of Unknown ([place] III) Etiology 07/26/2013 DEA KAUR [facility] Active Last Documented On 4 11:10AM ; [facility] Previous Colposcopy 04/16/2012 DEA KAUR [facility] Active Last Documented On 3 8:55AM ; [facility] Plan of Treatment - Clinical summary provided to patient - Last Documented On 01/29/2018 10:16AM ; [facility] Assessments Includes: Assessments from this encounter Findings - Complete spontaneous . She was advised not to conceive for a minimum of 3 months - Last Documented On 01/29/2018 10:16AM ; [facility] Patient was counseled that she did nothing to cause miscarriage and that she could not have done anything to prevent miscarriage. Having one miscarriage does not increase the risk of future loss. - Last Documented On 01/29/2018 10:16AM ; [facility] Medical Equipment - Implanted Devices Includes: Current Devices No Medical Equipment Recorded Medications Includes: Medications discussed during this encounter and other current Medications Discontinued / Stopped on this date on 02/26/2014 Xanax 0.5 MG OR TABS Provider: Diagnosis: Last Documented On 8 10:01AM By ALEXANDRA JAMISON Ramona ; [facility] Current Medications (continue as prescribed) Ambien 5 MG Tablet 03/11/2015 Provider: Diagnosis: Last Documented On 03/11/2015 9:37AM By Divina Rutledge Ramona ; [facility] Past Medications on file Benzonatate 200MG Oral Capsule 02/03/2017 - 02/13/2017 Provider: PAT PARKER [facility] Diagnosis: Acute sinusitis, unspecified TID PRN cough Last Documented On 7 8:30AM By PAT KEITH [facility] ; [facility] Augmentin 875-125MG Oral Tablet 02/03/2017 - 02/13/2017 Provider: PAT PARKER [facility] Diagnosis: Acute sinusitis, unspecified One tablet twice a day Last Documented On 7 8:30AM By PAT KEITH [facility] ; [facility] Flonase Allergy Relief 50 MCG/ACT Suspension 03/11/2015 - 04/10/2015 Provider: ADALBERTO MOTTA D.O. Diagnosis: Oth viral agents as the cause of diseases classd elswhr 2 sprays each nostril q day Last Documented On 03/11/2015 10:12AM By NICOLE BASSETT Ramona ; [facility] CeleXA 10 MG Tablet 03/11/2015 - 04/10/2015 Provider: ADALBERTO MOTTA D.O. Diagnosis: Anxiety disorder due to known physiological condition One tablet daily Last Documented On 03/11/2015 10:13AM By NICOLE BRITT ; [facility] Amoxicillin 500 MG Capsule 11/05/2014 - 11/19/2014 Pro vider: ADALBERTO MOTTA D.O. Diagnosis: One tablet three times a day Last Documented On 11/05/2014 10:30AM By ADALBERTO MOTTA DO ; [facility] Zolpidem Tartrate 10 MG Tablet 10/28/2014 - 11/27/2014 Provider: ADALBERTO MOTTA D.O. Diagnosis: PERSISTENT INSOM HARISH 1 PO QHS USE SPARINGLY,MUST LAST 30 DAYS Last Documented On 10/28/2014 2:29PM By ADALBERTO MOTTA DO ; [facility] Amoxicillin 500 MG OR TABS 02/26/2014 - 03/12/2014 Pro vider: ADALBERTO MOTTA D.O. Diagnosis: Last Documented On 02/26/2014 7:33PM By RADHAMES BRITT ; [facility] Medications Administered Includes: Administered Medications from this encounter No Administered Medications Recorded Vital Signs Includes: Vital Signs from this encounter Vital Name 01/29/2018 09:58A 01/29/2018 09: 57A Blood Pressure Sitting L 110/62 BP Cuff Size Regular Height (in) 64 64 Weight (lb) 147 Body Mass Index (kg/m2) 25.2 Body Surface Area (m2) 1.7 Last Documented: On 01/29/2018 10:00A M ; [facility] On 01/29/2018 9:57AM ; [facility] Results Includes: Results discussed during this encounter HCG, TOTAL, QN [facility] Ordered by DAE QUIROZ on 12/21 Collected: 01/01/2018 Reported: 01/03/20 18 13:58 Last Documented On 8 3:33PM ; [facility] Reviewed by DEA KUO on 01/03/2018; All test results are final unless otherwise noted. HCG, TOTAL, QN 1364 mIU/mL H (High) Last Documented On 01/02/2018 3:33PM ; [facility] Note: Reference RangeNon or premenopausal <5Postmenopausal <10 Values from different assay methods may vary.The use of this assay to monitor or to diagnose patients with cancer or any condition unrelatedto has not been cleared or approved bythe FDA or the credit card control clerk of the assay. ANTIBODY SCREEN, RBC W/REFL ID, TITER AN D AG [facility] [employer] Ordered by DEA QUIROZ on 12/21 Collected: 01/01/2018 Reported: 01/03/20 18 13:58 Last Documented On 8 3:33PM ; [facility] Reviewed by DEA KUO on 01/03/2018; All test results are final unless otherwise noted. ANTIBODY SCREEN, RBC W/REFL ID, TITER A NO ANTIBODIES DETECTED N (Normal) Last Documented On 01/02/2018 3:33PM ; [facility] Note: Reference range No antibodies detected This assay is a screening test for the detection of red blood cell antibodies. The test is not to be used for pretransfusion screening or for the medical management of an alloimmunized . ABO GROUP AND RH TYPE (REFL) [facility] [employer] Ordered by DEA QUIROZ on 12/21 Collected: 01/01/2018 Reported: 01/03/20 18 13:58 Last Documented On 8 3:33PM ; [facility] Reviewed by DEA KUO on 01/03/2018; All test results are final unless otherwise noted. ABO GROUP A None Last Documented On 8 3:33PM ; [facility] RH TYPE (REFL) RH (D) NEGATIVE None Last Documented On 01/02/2018 3:33PM ; [facility] Note: Our records indicate that you have ordered aclient custom reflex order code. Only theinitial test was performed because we do nothave a client custom reflex testingauthorization request form on file for you.Please contact a client service representativeif you would like additional testing done onthis patient or contact your salesrepresentative to obtain a client custom reflextesting authorization request form. History of Present Illness Includes: History of Present Illness from this encounter HPI MARKEL BELLE is a 32 year old female. - Medication list reviewed. - Taking pain medication - Bleeding has stopped - No fever - No pelvic pain - No vaginal discharge - No dizziness Social History Description Last Updated In monogamous relationship 01/29/2018 Last Documented On 8 10:16AM ; [facility] Not using drugs 01/29/2018 Last Documented On 8 10:16AM ; [facility] Smoking status : Former smoker 8 Last Documented On 8 10:16AM ; [facility] Alcohol use seldom 08/28/2017 Last Documented On 8 9:57AM ; [facility] Non-smoker 08/28/2017 Last Documented On 8 9:57AM ; [facility] Sexually active with 1 partners in the l ast year 08/28/2017 Last Documented On 8 9:57AM ; [facility] Social history unchanged 08/28/2017 Last Documented On 8 9:57AM ; [facility] Procedures and Surgical History Includes: Procedures from this encounter Procedures Code Diagnosis Performing Provider Service L ocation Service Date test was positive Last Documented On 8 10:14AM ; [facility] Surgical History Last Updated Surgical / procedural history Nose surge ry 2009 07/12/2016 Last Documented On 8 9:57AM ; [facility] Medical History Includes: Medical History addressed during this encounter Description Last Updated LMP: 11/13/2017 01/29/2018 Last Documented On 8 10:16AM ; [facility] Result: abnormal HR HPV+ 2 years in a ro w 10/27/2017 Last Documented On 8 9:57AM ; [facility] Last pap smear date 08/28/2017 10/27/2017 Last Documented On 8 9:57AM ; [facility] History of Pap smear done 08/28/201709/20 Last Documented On 8 9:57AM ; [facility] History of human papilloma virus infecti on 08/28/2017 Last Documented On 8 9:57AM ; [facility] No recent change in medical history 10/2017 Last Documented On 8 9:57AM ; [facility] Sexually active 08/28/2017 Last Documented On 8 9:57AM ; [facility] Contraception: condoms 08/28/2017 Last Documented On 8 9:57AM ; [facility] Previous hospitalizations HEAD INJURY Last Documented On 8 9:57AM ; [facility] Family History Includes: Family History addressed during this encounter Description Last Updated Family history unchanged 08/28/2017 Last Documented On 8 9:57AM ; [facility] Maternal history of hypertension MOM 10/2017 Last Documented On 8 9:57AM ; [facility] Maternal history of pure hypercholestero lemia both sides 08/28/2017 Last Documented On 8 9:57AM ; [facility] Paternal grandmother's history of diabet es mellitus paternal grandparents 08/28/2017 Last Documented On 8 9:57AM ; [facility] Paternal history of family h istory of heart disease both sides-grandparetns,parents 08/28/2017 Last Documented On 8 9:57AM ; [facility] Spouse name: Rod 07/26/2013 Last Documented On 8 9:57AM ; [facility] Family history of heart disease both angella es 07/26/2013 Last Documented On 8 9:57AM ; [facility] Family history of hypercholesterolemia b oth sides 07/26/2013 Last Documented On 8 9:57AM ; [facility] Family history of hypertension MOM 04/16 Last Documented On 8 9:57AM ; [facility] Father CVA 01/23/2009 Last Documented On 8 9:57AM ; [facility] Cancer 07/28/2008 Last Documented On 8 9:57AM ; [facility] Review of Systems Includes: Review of Systems from this encounter Systemic: No recent weight change. Head: No headache. Eyes: No vision problems. Otolaryngeal: No hoarseness. Cardiovascular: No chest pain or discomfort and no palpitations. Pulmonary: No shortness of breath. Gastrointestinal: Normal appetite. No nausea, no vomiting, and no hematochezia. No diarrhea and no constipation. Genitourinary: No nocturia. No urinary loss of control and no dysuria. Musculoskeletal: No arthralgias and no localized joint swelling. Neurological: No tingling and no numbness. Psychological: No anxiety, no depression, and no sleep disturbances. Mental Status Includes: Mental Status from this encounter Description No anxiety Functional Status Includes: Functional Status from this encounter No Functional Status Recorded Physical Exam Includes: Physical Exam from this encounter Allergies Includes: Active Allergies No Known Allergies Encounters Encounter Provider Location Date Check-In Time Check-Out Time Diagnosis PROBLEM VISIT [facility] POLICE AIDE 01/30/20 18 10:00AM 10:14AM Spontaneous - Complete Insurance Includes: Active Insurance Policies Plan Name Member ID Group # Subscriber Relationship Effect colin Dates 1 - [facility] [id number] MARKEL BELLE Self Clinical Notes Includes: Clinical Notes from this encounter No Clinical Notes Recorded
--- OUTSIDE RECORDS SUMMARY | 2024-06-04 13:25 | XMS_ITS | Clinical Summary ---
Author Organization [employer] [facility] [address] [facility] [address] [place] [address] Phone Care Team Providers Care Hide And Skin Colerer Name Role Phone Unavailable Primary Care Provider Unavailabl e Social History Tobacco Use Types Packs/Day Years Used Date Smoking Tobacco: Never Assessed Comments Unknown Sex and Gender Information Value Date Recorded Sex Assigned at Not on file Legal Sex Female 6:43 PM [employer] Gender Identity Not on file Sexual Orientation Not on file Plan of Treatment Health Maintenance Due Date Last Done Comments DTAP/TDAP/TD VACCINES (1 - Tdap) 06/04/2003 HEPATITIS B VACCINES (1 of 3 - 19+ 3-dose series) 06/04/2003 HPV/Cotest (21-29) 2005 HPV/Cotest (30-65) 2014 CERVICAL CANCER SCREENING 07/31/2023 PAP SMEAR 07/31/2023 07/30/2020, 04/10/2018 PAP SMEAR 07/31/2023 07/30/2020, 04/10/2018 INFLUENZA VACCINE (#1) 2023 HPV VACCINES Aged Out No longer eligi ble based on patient's age to complete this topic PNEUMOCOCCAL VACCINE 0-49 YEARS Aged Out No longer eligible b ased on patient's age to complete this topic
--- OUTSIDE RECORDS SUMMARY | 2024-06-04 13:26 | XMS_ITS | Clinical Summary ---
Author Organization [facility] Address [address] [place] [address] Phone Care Team Providers Care Hide Salter Name Role Phone ADALBERTO MOTTA DO Primary Care Provider [phone] PHONEIX MONTILLA MD Unavailable [phone] Reason for Visit and Chief Complaint The Chief Complaint is: rhogam infection given in left glut pt tolerated well lot# [id number] exp:12/10/19 Problems Includes: Problems addressed during this encounter and other active Problems All Visits Onset Date Resolved Date Provider Condition S tatus Anxiety Disorder of Unknown ([place] III) Etiology 07/26/2013 DEA KAUR [facility] Active Last Documented On 4 11:10AM ; [facility] Previous Colposcopy 04/16/2012 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 Last Documented On 3 8:55AM ; [facility] Plan of Treatment Pending Tests Order Diagnosis Results Due Ordering P rovider Injections Rhogam Threatened 01/01/18 DEA KAUR NP-[facility] Last Documented On 8 1:56PM ; [facility] Assessments Includes: Assessments from this encounter No Assessments Recorded Medical Equipment - Implanted Devices Includes: Current Devices No Medical Equipment Recorded Medications Includes: Medications discussed during this encounter and other current Medications Current Medications (continue as prescribed) Ambien 5 MG Tablet 03/11/2015 Provider: Diagnosis: Last Documented On 03/11/2015 9:37AM By Divina BRITT ; [facility] Past Medications on file Benzonatate 200MG Oral Capsule 02/03/2017 - 02/13/2017 Provider: PAT PARKER [facility] Diagnosis: Acute sinusitis, unspecified TID PRN cough Last Documented On 7 8:30AM By PAT KEITH [facility] ; [facility] Augmentin 875-125MG Oral Tablet 02/03/2017 - 02/13/2017 Provider: PAT PARKER [facility] Diagnosis: Acute sinusitis, unspecified One tablet twice a day Last Documented On 7 8:30AM By PAT KEITH [facility] ; [facility] Flonase Allergy Relief 50 MCG/ACT Suspension 03/11/2015 - 04/10/2015 Provider: ADALBERTO MOTTA D.O. Diagnosis: Oth viral agents as the cause of diseases classd elswhr 2 sprays each nostril q day Last Documented On 03/11/2015 10:12AM By NICOLE BRITT ; [facility] CeleXA 10 MG Tablet 03/11/2015 - 04/10/2015 Provider: ADALBERTO MOTTA D.O. Diagnosis: Anxiety disorder due to known physiological condition One tablet daily Last Documented On 03/11/2015 10:13AM By NICOLE BRITT ; [facility] Amoxicillin 500 MG Capsule 11/05/2014 - 11/19/2014 Pro vider: ADALBERTO MOTTA D.O. Diagnosis: One tablet three times a day Last Documented On 11/05/2014 10:30AM By ADALBERTO MOTTA DO ; [facility] Zolpidem Tartrate 10 MG Tablet 10/28/2014 - 11/27/2014 Provider: ADALBERTO MOTTA D.O. Diagnosis: PERSISTENT INSOM HARISH 1 PO QHS USE SPARINGLY,MUST LAST 30 DAYS Last Documented On 10/28/2014 2:29PM By ADALBERTO MOTTA DO ; [facility] Amoxicillin 500 MG OR TABS 02/26/2014 - 03/12/2014 Pro vider: ADALBERTO MOTTA D.O. Diagnosis: Last Documented On 02/26/2014 7:33PM By RADHAMES BRITT ; [facility] Medications Administered Includes: Administered Medications from this encounter Medications Administered Diagnosis Date Pro vider RhoGAM Ultra-Filtered Plus 1 500 UNIT IM SOSY 01/01/2018 [facility] PT TOLERATED WELL AD Last Documented On 8 1:38PM By JAIME CROOKS WARE SERVER ; [facility] Vital Signs Includes: Vital Signs from this encounter Vital Name 01/01/2018 01:25P Blood Pressure Sitting (mmHg) 100/62 Height (in) 64 Weight (lb) 146 Body Mass Index (kg/m2) 25.1 Body Surface Area (m2) 1.7 Last Documented: On 01/01/2018 1:35PM ; [facility] Results Includes: Results discussed during [...] Location Date Check-In Time Check-Out Time Diagnosis INJECTION DEA KAUR [facility] 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
--- OUTSIDE RECORDS SUMMARY | 2024-06-04 13:26 | XMS_ITS ---
Author Organization [facility] Address [address] [place] [address] Phone Care Team Providers Care Manager Of Application Development Name Role Phone ADALBERTO MOTTA DO Primary Care Provider [phone] PHOENIX MONTILLA MD Unavailable [phone] Problems Includes: Active, inactive, and resolved Problems All Visits Onset Date Resolved Date Provider Condition S tatus Anxiety Disorder of Unknown (Trona III) Etiology 07/26/2013 DEA KAUR [facility] Active Last Documented On 4 11:10AM ; [facility] Previous Colposcopy 04/16/2012 DEA KAUR [facility]- Active Last Documented On 3 8:55AM ; [facility] Plan of Treatment Findings Encounter Date Ordered Clinical summary pro vided to patient PROBLEM VISIT with DEA KAUR [facility] 01/29/2018 Last Documented On 8 10:16AM ; [facility] Ordered Clinical summary pro vided to patient COLPOSCOPY with DEA KAUR [facility]- 10/05/2017 Last Documented On 8 9:36AM ; [facility] Ordered follow-up visit in 1 -2 weeks with an office visit or sooner if symptoms persist or worsen WALK-IN CLINIC SICK VISIT with JONNA ELLIOTT [facility]- 09/21/2017 Last Documented On 8 5:15PM ; [facility] Ordered patient to call if p roblem develops WALK-IN CLINIC SICK VISIT with JONNA ELLIOTT [facility]- 09/21/2017 Last Documented On 8 5:15PM ; [facility] Ordered referred to primary care physician WALK-IN CLINIC SICK VISIT with JONNA ELLIOTT [facility] 09/21/2017 Last Documented On 8 5:15PM ; [facility] Ordered return to the clinic if condition worsens or new symptoms arise WALK-IN CLINIC SICK VISIT with JONNA ELLIOTT [facility]- 09/21/2017 Last Documented On 8 5:15PM ; [facility] Ordered Transition in care, clinical summary provided WALK-IN CLINIC SICK VISIT with JONNA ELLIOTT [facility] 09/21/2017 Last Documented On 8 5:15PM ; [facility] Ordered Clinical summary pro vided to patient ACCORDION TUNER EXAM with DEA Greene [facility]- 08/28/2017 Last Documented On 8 3:21PM ; [facility] Ordered patient will call fo r appointment as needed PROBLEM VISIT with PAT SIDDIQIAVE [facility] 02/03/2017 Last Documented On 7 8:37AM ; [facility] Ordered return to the clinic if condition worsens or new symptoms arise PROBLEM VISIT with PAT PARKER [facility] 02/03/2017 Last Documented On 7 8:37AM ; [facility] Ordered Clinical summary pro vided to patient ACCORDION TUNER EXAM with DEA KAUR [facility] 07/12/2016 Last Documented On 7 2:22PM ; [facility] Ordered return to the clinic if condition worsens or new symptoms arise SICK VISIT with ADALBERTO MOTTA D.O. 11/05/2014 Last Documented On 5 2:19PM ; [facility] Ordered patient will call fo r appointment as needed EMERGENCY ROOM FOLLOW [facility] 05/13/2014 Last Documented On 5 12:24PM ; [facility] Ordered return to the clinic if condition worsens or new symptoms arise EMERGENCY ROOM FOLLOW [facility] 05/13/2014 Last Documented On 5 12:24PM ; [facility] Ordered return to the clinic if condition worsens or new symptoms arise SICK VISIT with ADALBERTO Ramona CRANCER D.O. 02/26/2014 Last Documented On 5 7:41PM ; [facility] Ordered Clinical summary pro vided to patient ACCORDION TUNER EXAM with DEA KAUR [facility] 07/26/2013 Last Documented On 4 11:18AM ; [facility] Ordered Clinical summary pro vided to patient SICK VISIT with ADALBERTO A CRANCER D.O. 02/25/2013 Last Documented On 4 11:03AM ; [facility] Ordered return to the clinic if condition worsens or new symptoms arise THE SICK VISIT with ADALBERTO A CRANCER D.O. 02/25/2013 Last Documented On 4 11:03AM ; [facility] Ordered Clinical summary pro vided to patient PROBLEM VISIT with ADALBERTO Ramona CRANCER D.O. 12/27/2012 Last Documented On 3 6:26PM ; [facility] Ordered Clinical summary pro vided to patient . Plan discussed and patient understands SICK VISIT with ZENY BURROWS PA-C 10/11/2012 Last Documented On 3 9:57AM ; [facility] Ordered follow-up visit as n eeded with an office visit. Claritin or zyrtec. Salt water gargles, throat losenges. Fluids, rest. Call if symptoms worsen/persist SICK VISIT with ZENY BURROWS PA-C 10/11/2012 Last Documented On 3 9:57AM ; [facility] Ordered Clinical summary pro vided to patient PROBLEM VISIT with ADALBERTO A WESTONCER D.O. 09/17/2012 Last Documented On 3 3:57PM ; [facility] Ordered Clinical summary pro vided to patient PROBLEM VISIT with ADALBERTO Ramona CRANCER D.O. 06/21/2012 Last Documented On 3 3:36PM ; [facility] Ordered follow-up visit 1 ye ar or as needed ACCORDION TUNER EXAM with DEA KAUR [facility] 10/08/2009 Last Documented On 0 1:59PM ; [facility] Ordered a transvaginal ultrasound PROBLEM VISIT with DEA KAUR [facility] 09/03/2009 Last Documented On 0 3:44PM ; [facility] Instructions to patient Go to the emergency room if condition worsens Last Documented On 8 5:14PM ; [facility] Watch for signs/symptoms of infection Last Documented On 8 5:14PM ; [facility] Watch for signs/symptoms of infection, return to the clinic if seen Last Documented On 8 5:14PM ; [facility] Instructions for patient : B reast Self Exam discussed Last Documented On 8 3:01PM ; [facility] Safe sex counseling Last Documented On 8 3:01PM ; [facility] Instructions for patient : B reast Self Exam discussed Last Documented On 7 2:10PM ; [facility] Safe sex counseling Last Documented On 7 2:10PM ; [facility] Instructions for patient Last Documented On 5 9:14AM ; [facility] Instructions for patient : B reast Self Exam discussed Last Documented On 4 10:59AM ; [facility] Instructions for patient : B reast Self Exam discussed Last Documented On 3 8:45AM ; [facility] Safe sex counseling Last Documented On 3 8:53AM ; [facility] Instructions for patient : B reast Self Exam discussed Last Documented On 0 1:47PM ; [facility] Gardasil information given a nd series encouraged Last Documented On 0 1:49PM ; [facility] Safe sex counseling Last Documented On 0 1:49PM ; [facility] Instructions for patient ER if dizzy, vomiting or light-headed due to heavy bleeding Last Documented On 0 3:21PM ; [facility] Instructions for patient : p atient is to keep a menstrual diary to help with further evaluation and treatment Last Documented On 0 3:21PM ; [facility] Instructions for patient RTO after U/S - follow up and plan of care Last Documented On 0 3:21PM ; [facility] Instructions for patient ER if bleeding through reg. sized pad/tampon < 1 hour Last Documented On 0 3:21PM ; [facility] Education and Decision Aids were provided during visit for: INFORMED CONSENT DISCUSSION: Colposcopy was discussed in detail including risk of post procedure bleeding. Patient is not to have intercourse for 2 weeks following the procedure. Patient expressed understanding of the above and consented to the procedure Last Documented On 8 9:11AM ; [facility] Patient education about anti biotics: need to finish even if feeling better Last Documented On 8 5:14PM ; [facility] Patient Education: Daily dc cium and vitamin D Last Documented On 8 3:01PM ; [facility] Patient Education: weight be aring exercise Last Documented On 8 3:01PM ; [facility] Patient Education: Daily dc cium and vitamin D Last Documented On 7 2:10PM ; [facility] Patient Education: weight be aring exercise Last Documented On 7 2:10PM ; [facility] Patient education about anti biotics: need to finish even if feeling better Last Documented On 5 7:34PM ; [facility] Patient counseling : Use of oral contraceptives discussed in detail including rare occurrence of heart attack, stroke, and leg clots. Patient understands that smoking increases the risk of serious side effects with any steroid-based contraceptive method Last Documented On 4 4:01PM ; [facility] Patient Education: Daily dc cium and vitamin D Last Documented On 4 10:59AM ; [facility] Patient Education: weight be aring exercise Last Documented On 4 10:59AM ; [facility] control consent review ed and signed Last Documented On 4 11:17AM ; [facility] Patient Education: Daily dc cium and vitamin D Last Documented On 3 8:45AM ; [facility] Patient Education: weight be aring exercise Last Documented On 3 8:45AM ; [facility] Smoking cessation advised Last Documented On 3 8:53AM ; [facility] Assessments Includes: Assessments for all patient encounters Findings Encounter Date Complete spontaneous abortio n . She was advised not to conceive for a minimum of 3 months PROBLEM VISIT with DEA KAUR [facility] 01/29/2018 Last Documented On 8 10:16AM ; [facility] Cervical dysplasia--mild (SERGIO I) CONSULTATION lilian MONTILLA MD 10/27/2017 Last Documented On 8 10:25AM ; [facility] Assessment of cervical high risk human papilloma virus DNA test was positive COLPOSCOPY with DEA A [facility] 10/05/2017 Last Documented On 8 9:36AM ; [facility] Acute sinusitis WALK-IN CLINIC SICK VISIT with Megan ELLIOTT [facility] 09/21/2017 Last Documented On 8 5:15PM ; [facility] NORMAL FEMALE EXAM ACCORDION TUNER EXAM with DEA Ramona [facility] 08/28/2017 Last Documented On 8 3:21PM ; [facility] Acute sinusitis PROBLEM VISIT with PAT BLOOM [facility] 02/03/2017 Last Documented On 7 8:37AM ; [facility] NORMAL FEMALE EXAM ACCORDION TUNER EXAM with DEA Ramona [facility] 07/12/2016 Last Documented On 7 2:22PM ; [facility] Anxiety disorder of unknown (axis III) etiology SICK VISIT with ADALBERTO MOTTA D.O. 03/11/2015 Last Documented On 6 5:52PM ; [facility] Viral syndrome SICK VISIT with ADALBERTO MOTTA D.O. 03/11/2015 Last Documented On 6 5:52PM ; [facility] Acute sinusitis SICK VISIT with ADALBERTO MOTTA D.O. 11/05/2014 Last Documented On 5 2:19PM ; [facility] FOLLOW-UP EXAM EMERGENCY ROOM FOLLO W UP with PAT PARKER [facility] 05/13/2014 Last Documented On 5 12:24PM ; [facility] Upper respiratory infection EMERGENCY RO OM FOLLOW UP with PAT PARKER [facility] 05/13/2014 Last Documented On 5 12:24PM ; [facility] Sinusitis SICK VISIT with ADALBERTO A CRANCER D.O. 02/26/2014 Last Documented On 5 7:41PM ; [facility] Contraceptive management MED CHECK with DEA KAUR [facility] 11/04/2013 Last Documented On 4 4:14PM ; [facility] NORMAL FEMALE EXAM ACCORDION TUNER EXAM with DEA Vogt [facility] 07/26/2013 Last Documented On 4 11:18AM ; [facility] Anxiety disorder NOS MED CHECK with ADALBERTO Ramona SABILLON NCER D.O. 04/05/2013 Last Documented On 4 4:15PM ; [facility] Secondary insomnia MED CHECK with ADALBERTO Ramona ONTIVEROSC ER D.O. 04/05/2013 Last Documented On 4 4:15PM ; [facility] Acute sinusitis SICK VISIT with ADALBERTO A CRANCER D.O. 02/25/2013 Last Documented On 4 11:03AM ; [facility] Dyspnea/SOB PROBLEM VISIT with ADALBERTO A CRAN CER D.O. 12/27/2012 Last Documented On 3 6:26PM ; [facility] Secondary insomnia PROBLEM VISIT with ADALBERTO A C RANCER D.O. 12/27/2012 Last Documented On 3 6:26PM ; [facility] Acute sinusitis SICK VISIT with ZENY BURROWS PA-C 10/11/2012 Last Documented On 3 9:57AM ; [facility] Primary insomnia PROBLEM VISIT with ADALBERTO A RIDGE NCER D.O. 09/17/2012 Last Documented On 3 3:57PM ; [facility] Anxiety disorder NOS PROBLEM VISIT with ADALBERTO A CRANCER D.O. 06/21/2012 Last Documented On 3 3:36PM ; [facility] Nicotine dependence PROBLEM VISIT with ADALBERTO A CRANCER D.O. 06/21/2012 Last Documented On 3 3:36PM ; [facility] Secondary insomnia PROBLEM VISIT with ADALBERTO A C RANCER D.O. 06/21/2012 Last Documented On 3 3:36PM ; [facility] NORMAL FEMALE EXAM ACCORDION TUNER EXAM with DEA BROWNP- 04/16/2012 Last Documented On 3 9:03AM ; [facility] Eustachian tube dysfunction PROBLEM VISIT with Isamar MOTTA D.O. 04/29/2011 Last Documented On 2 3:18PM ; [facility] Acute sinusitis amox prescribed SICK VISIT with ADALBERTO MOTTA D.O. 03/02/2011 Last Documented On 2 3:06PM ; [facility] Normal routine history and physical ACCORDION TUNER EXAM wit h DEA Greene KAUR [facility] 10/08/2009 Last Documented On 0 1:59PM ; [facility] Routine pelvic exam ACCORDION TUNER EXAM with DEA KAUR [facility] 10/08/2009 Last Documented On 0 1:59PM ; [facility] Menorrhagia PROBLEM VISIT with DEA Greene [facility] 09/03/2009 Last Documented On 0 3:44PM ; [facility] Acute pharyngitis SICK VISIT with ADALBERTO SULLIVAN ER D.O. 12/24/2008 Last Documented On 9 6:48PM ; [facility] Urticaria THE PT IS TO GET P EPCID 20 MG BID X 7D AND GET CLARITIN OR ZYRTEC OTC FOR 7D SICK VISIT with ADALBERTO MOTTA D.O. 12/24/2008 Last Documented On 9 6:48PM ; [facility] Instructions Includes: Instructions for all patient encounters Instructions to patient Go to the emergency room if condition worsens Last Documented On 8 5:14PM ; [facility] Watch for signs/symptoms of infection Last Documented On 8 5:14PM ; [facility] Watch for signs/symptoms of infection, return to the clinic if seen Last Documented On 8 5:14PM ; [facility] Instructions for patient : B reast Self Exam discussed Last Documented On 8 3:01PM ; [facility] Safe sex counseling Last Documented On 8 3:01PM ; [facility] Instructions for patient : B reast Self Exam discussed Last Documented On 7 2:10PM ; [facility] Safe sex counseling Last Documented On 7 2:10PM ; [facility] Instructions for patient Last Documented On 5 9:14AM ; [facility] Instructions for patient : B reast Self Exam discussed Last Documented On 4 10:59AM ; [facility] Instructions for patient : B reast Self Exam discussed Last Documented On 3 8:45AM ; [facility] Safe sex counseling Last Documented On 3 8:53AM ; [facility] Instructions for patient : B reast Self Exam discussed Last Documented On 0 1:47PM ; [facility] Gardasil information given a nd series encouraged Last Documented On 0 1:49PM ; [facility] Safe sex counseling Last Documented On 0 1:49PM ; [facility] Instructions for patient ER if dizzy, vomiting or light-headed due to heavy bleeding Last Documented On 0 3:21PM ; [facility] Instructions for patient : p atient is to keep a menstrual diary to help with further evaluation and treatment Last Documented On 0 3:21PM ; [facility] Instructions for patient RTO after U/S - follow up and plan of care Last Documented On 0 3:21PM ; [facility] Instructions for patient ER if bleeding through reg. sized pad/tampon < 1 hour Last Documented On 0 3:21PM ; [facility] Education and Decision Aids were provided during visit for: INFORMED CONSENT DISCUSSION: Colposcopy was discussed in detail including risk of post procedure bleeding. Patient is not to have intercourse for 2 weeks following the procedure. Patient expressed understanding of the above and consented to the procedure Last Documented On 8 9:11AM ; [facility] Patient education about anti biotics: need to finish even if feeling better Last Documented On 8 5:14PM ; [facility] Patient Education: Daily dc cium and vitamin D Last Documented On 8 3:01PM ; [facility] Patient Education: weight be aring exercise Last Documented On 8 3:01PM ; [facility] Patient Education: Daily dc cium and vitamin D Last Documented On 7 2:10PM ; [facility] Patient Education: weight be aring exercise Last Documented On 7 2:10PM ; [facility] Patient education about anti biotics: need to finish even if feeling better Last Documented On 5 7:34PM ; [facility] Patient counseling : Use of oral contraceptives discussed in detail including rare occurrence of heart attack, stroke, and leg clots. Patient understands that smoking increases the risk of serious side effects with any steroid-based contraceptive method Last Documented On 4 4:01PM ; [facility] Patient Education: Daily dc cium and vitamin D Last Documented On 4 10:59AM ; [facility] Patient Education: weight be aring exercise Last Documented On 4 10:59AM ; [facility] control consent review ed and signed Last Documented On 4 11:17AM ; [facility] Patient Education: Daily dc cium and vitamin D Last Documented On 3 8:45AM ; [facility] Patient Education: weight be aring exercise Last Documented On 3 8:45AM ; [facility] Smoking cessation advised Last Documented On 3 8:53AM ; [facility] Medical Equipment - Implanted Devices Includes: Current and historical Devices No Medical Equipment Recorded Medications Includes: Current and historical Medications Current Medications (continue as prescribed) Ambien 5 MG Tablet 03/11/2015 Provider: Diagnosis: Last Documented On 03/11/2015 9:37AM By Divina BRITT ; [facility] Past Medications on file Amoxicillin-Pot Clavulanate 875-125MG Oral Tablet 09/21/2017 - 10/27/2017 Provider: JONNA ELLIOTT [employer]PER[employer]OR[employer] Diagnosis: Acute sinusitis, unspecified One tablet twice a day Last Documented On 8 9:59AM By JULIETH CHEW LPN ; [facility] Benzonatate 200MG Oral Capsule 02/03/2017 - 02/13/2017 Provider: PAT PARKER PMHNP-BC [employer]PER[employer]OR-BC Diagnosis: Acute sinusitis, unspecified TID PRN cough Last Documented On 7 8:30AM By PAT PARKER [facility] ; [facility] Augmentin 875-125MG Oral Tablet 02/03/2017 - 02/13/2017 Provider: PAT PARKER [facility] Diagnosis: Acute sinusitis, unspecified One tablet twice a day Last Documented On 7 8:30AM By PAT PARKER [facility] ; [facility] Flonase Allergy Relief 50 MCG/ACT Suspension 03/11/2015 - 04/10/2015 Provider: ADALBERTO MOTTA D.O. Diagnosis: Ot viral agents as the cause of diseases classd elswhr 2 sprays each nostril q day Last Documented On 03/11/2015 10:12AM By NICOLE BRITT ; [facility] CeleXA 10 MG Tablet 03/11/2015 - 04/10/2015 Provider: ADALBERTO MOTTA D.O. Diagnosis: Anxiety disorder due to known physiological condition One tablet daily Last Documented On 03/11/2015 10:13AM By NICOLE BRITT ; [facility] Amoxicillin 500 MG Capsule 11/05/2014 - 11/19/2014 Pro vider: ADALBERTO MOTTA D.O. Diagnosis: One tablet three times a day Last Documented On 11/05/2014 10:30AM By ADALBERTO MOTTA DO ; [facility] Zolpidem Tartrate 10 MG Tablet 10/28/2014 - 11/27/2014 Provider: ADALBERTO MOTTA D.O. Diagnosis: PERSISTENT INSOM HARISH 1 PO QHS USE SPARINGLY,MUST LAST 30 DAYS Last Documented On 10/28/2014 2:29PM By ADALBERTO MOTTA DO ; [facility] Amoxicillin 500 MG OR TABS 02/26/2014 - 03/12/2014 Pro vider: ADALBERTO MOTTA D.O. Diagnosis: Last Documented On 02/26/2014 7:33PM By RADHAMES ARAYA Ramona ; [facility] Xanax 0.5 MG OR TABS 02/26/2014 - 01/29/2018 Provider: Diagnosis: 1 AT BEDTIME, DR TRUONG Last Documented On 8 10:01AM By ALEXANDRA JAMISON Ramona ; [facility] Sydni 0.35 MG OR TABS 11/04/2013 - 02/26/2014 Provider: DEA KAUR [facility] Diagnosis: Contraceptive Ma ngmt NOS Last Documented On 02/26/2014 7:13PM By ANI BRITT ; [facility] Altavera 0.15-30 MG-MCG OR TABS 10/15/2013 - 11/04/2013 Provider: DEA KAUR [facility] Diagnosis: Contraceptive Ma ngmt NOS Last Documented On 4 4:09PM By DEA KAUR [facility] ; [facility] Zolpidem Tartrate 10 MG OR TABS 08/29/2013 - 10/28/2014 Provider: ADALBERTO MOTTA D.O. Diagnosis: PERSISTENT INSOM HARISH 1 PO QHS USE SPARINGLY,MUST LAST 30 DAYS Last Documented On 10/28/2014 2:29PM By ADALBERTO MOTTA DO ; [facility] Apri 0.15-30 MG-MCG OR TABS 07/26/2013 - 02/26/2014 Provider: DEA KAUR [facility] Diagnosis: Contraceptive Ma ngmt NOS Last Documented On 02/26/2014 7:13PM By ANI BRITT ; [facility] Zolpidem Tartrate 10 MG OR TABS 07/22/2013 - 08/29/2013 Provider: ADALBERTO MOTTA D.O. Diagnosis: PERSISTENT INSOM HARISH 1 PO QHS USE SPARINGLY,MUST LAST 30 DAYS Last Documented On 08/29/2013 8:27AM By ADALBERTO MOTTA DO ; [facility] Zolpidem Tartrate 10 MG OR TABS 05/29/2013 - 07/22/2013 Provider: ADALBERTO MOTTA D.O. Diagnosis: PERSISTENT INSOM HARISH 1 PO QHS USE SPARINGLY,MUST LAST 30 DAYS Last Documented On 07/22/2013 5:03PM By ADALBERTO MOTTA DO ; [facility] Cymbalta 30 MG OR CPEP 04/08/2013 - 07/26/2013 Provide r: ADALBERTO MOTTA D.O. Diagnosis: 1 PO QD X 7 DAYS, THEN 2 PO QD, WAIT ONE WEEK BEFORE STARTING Last Documented On 07/26/2013 11:07AM By BROCK ALAS ; [facility] Venlafaxine HCl 37.5 MG OR TABS 04/05/2013 - 07/26/2013 Provider: ADALBERTO MOTTA D.O. Diagnosis: ANXIETY STATE NO S 1 PO BID X 7D, THEN 2 PO BID Last Documented On 07/26/2013 11:07AM By BROCK ALAS ; [facility] Zolpidem Tartrate 10 MG OR TABS 04/05/2013 - 05/29/2013 Provider: ADALBERTO MOTTA D.O. Diagnosis: PERSISTENT INSOM HARISH 1 PO QHS USE SPARINGLY,MUST LAST 30 DAYS Last Documented On 05/29/2013 2:15PM By ADALBERTO MOTTA DO ; [facility] Zolpidem Tartrate 10 MG OR TABS 03/05/2013 - 07/26/2013 Provider: ADALBERTO MOTTA D.O. Diagnosis: PERSISTENT INSOM HARISH 1 po qhs prn Last Documented On 07/26/2013 11:07AM By BROCK ALAS ; [facility] Amoxicillin 500 MG OR CAPS 02/25/2013 - 07/26/2013 Provider: ADALBERTO MOTTA D.O. Diagnosis: ACUTE SINUSITIS NOS Last Documented On 07/26/2013 11:07AM By BROCK ALAS ; [facility] Ventolin HFA 108 (90 Base) MCG/ACT IN AERS 12/27/2012 - 07/26/2013 Provider: ADALBERTO MOTTA D.O. Diagnosis: Respiratory Abno rm NEC 2 puffs qid prn Last Documented On 07/26/2013 11:07AM By BROCK ALAS ; [facility] Zolpidem Tartrate 10 MG OR TABS 12/27/2012 - 03/05/2013 Provider: ADALBERTO MOTTA D.O. Diagnosis: PERSISTENT INSOM HARISH 1 po qhs prn Last Documented On 03/05/2013 12:40PM By ADALBERTO MOTTA DO ; [facility] Zithromax Z-Van 250 MG OR TABS 10/11/2012 - 12/27/2012 Provider: ZENY BURROWS PA-C Diagnosis: ACUTE SINUSITIS NOS Take as directed. Last Documented On 12/27/2012 4:31PM By RADHAMES BRITT ; [facility] Zolpidem Tartrate ER 12.5 MG OR TBCR 09/17/2012 - 10/11/2012 Provider: ADALBERTO MOTTA D.O. Diagnosis: PERSISTENT INSOM HARISH 1 PO QHS PRN,USE SPARINGLY Last Documented On 3 9:37AM By YADY BRITT ; [facility] PARoxetine HCl 10 MG OR TABS 06/21/2012 - 09/17/2012 Provider: ADALBERTO MOTTA D.O. Diagnosis: ANXIETY STATE NO S Last Documented On 09/17/2012 3:36PM By RAHDAMES BRITT ; [facility] predniSONE 10 MG OR TABS 04/29/2011 - 09/17/2012 Provider: ADALBERTO MOTTA D.O. Diagnosis: DYSFUNCT EUSTACH YOEL TUBE 4 pills qd x2d, 3 pills qd x 2d, 2 pills qd x2d, 1 pill qd x2d Last Documented On 09/17/2012 3:36PM By RADHAMES BRITT ; [facility] Amoxicillin 500 MG OR TABS 04/29/2011 - 09/17/2012 Provider: ADALBERTO MOTTA D.O. Diagnosis: DYSFUNCT EUSTACH YOEL TUBE Last Documented On 09/17/2012 3:36PM By RADHAMES BRITT ; [facility] Amoxicillin 500 MG OR TABS 03/02/2011 - 09/17/2012 Pro vider: ADALBERTO MOTTA D.O. Diagnosis: Last Documented On 09/17/2012 3:36PM By RADHAMES BRITT ; [facility] Femcon Fe 0.4-35 MG-MCG OR CHEW 10/08/2009 - 03/02/2011 Provider: DEA KAUR STEM SETTER-BC Diagnosis: Last Documented On 03/02/2011 2:35PM By JUDY MCALLISTER MA ; [facility] Femcon Fe 0.4-35 MG-MCG OR CHEW 09/03/2009 - 03/02/2011 Provider: DEA KAUR STEM SETTER-BC Diagnosis: Last Documented On 03/02/2011 2:35PM By JUDY MCALLISTER MA ; [facility] Ibuprofen 800 MG OR TABS 09/03/2009 - 03/02/2011 Provi rose: DEA KAUR NP-BC Diagnosis: Last Documented On 03/02/2011 2:35PM By JUDY MCALLISTER MA ; [facility] predniSONE 10 MG OR TABS 12/24/2008 - 03/02/2011 Provi rose: ADALBERTO MOTTA D.O. Diagnosis: Urticaria NOS 4 PILLS 2 TIMES A DAY FOR 2 D THEN 4 PILLS QDX 2D,THEN 3 PILLS A DAY FOR 2D, THEN 2 PILLSA DAY FOR 2D, THEN 1 PILL A DAY FOR 2D Last Documented On 03/02/2011 2:35PM By JUDY MCALLISTER MA ; [facility] TERE 3-0.02 MG OR TABS 08/07/2008 - 03/02/2011 Provider : Diagnosis: Last Documented On 03/02/2011 2:35PM By JUDY MCALLISTER MA ; [facility] Medications Administered Includes: Administered Medications in patient's chart Medications Administered Diagnosis Date Pro vider RhoGAM Ultra-Filtered Plus 1 500 UNIT IM SOSY 01/01/2018 DEA KAUR WHNP-B C PT TOLERATED WELL AD Last Documented On 8 1:38PM By JAIME CROOKS CMA ; [facility] Gardasil IM SUSP 05/07/2010 ANN PONCE M.D. Last Documented On 1 3:21PM By MATT CEJA MA ; [facility] Results Includes: Results from 06/05/2023 through 06/04/2024 No Results Recorded For Specified Dates History of Present Illness History of Present Illness not supported for this document type No History of Present Illness Recorded Social History Description Last Updated In monogamous relationship 01/29/2018 Last Documented On 8 10:16AM ; [facility] Not using drugs 01/29/2018 Last Documented On 8 10:16AM ; [facility] Smoking status : Former smoker 8 Last Documented On 8 10:16AM ; [facility] Alcohol use seldom 08/28/2017 Last Documented On 8 3:21PM ; [facility] Non-smoker 08/28/2017 Last Documented On 8 3:21PM ; [facility] Sexually active with 1 partners in the l ast year 08/28/2017 Last Documented On 8 3:21PM ; [facility] Social history unchanged 08/28/2017 Last Documented On 8 3:21PM ; [facility] Procedures and Surgical History Surgical History Last Updated Surgical / procedural history Nose surge ry 2009 07/12/2016 Last Documented On 7 2:22PM ; [facility] Medical History Includes: Medical History in patient's chart Description Last Updated LMP: 11/13/2017 01/29/2018 Last Documented On 8 10:16AM ; [facility] Result: abnormal HR HPV+ 2 years in a ro w 10/27/2017 Last Documented On 8 10:25AM ; [facility] Last pap smear date 08/28/2017 10/27/2017 Last Documented On 8 10:25AM ; [facility] History of Pap smear done 08/28/201709/20 Last Documented On 8 9:36AM ; [facility] History of human papilloma virus infecti on 08/28/2017 Last Documented On 8 3:21PM ; [facility] No recent change in medical history 10/2017 Last Documented On 8 3:21PM ; [facility] Sexually active 08/28/2017 Last Documented On 8 3:21PM ; [facility] Contraception: condoms 08/28/2017 Last Documented On 8 3:21PM ; [facility] Result: normal positive hpv 08/28/2017 Last Documented On 8 3:21PM ; [facility] Previous hospitalizations HEAD INJURY Last Documented On 7 2:22PM ; [facility] Family History Includes: Family History in patient's chart Description Last Updated Family history unchanged 08/28/2017 Last Documented On 8 3:21PM ; [facility] Maternal history of hypertension MOM 10/2017 Last Documented On 8 3:21PM ; [facility] Maternal history of pure hypercholestero lemia both sides 08/28/2017 Last Documented On 8 3:21PM ; [facility] Paternal grandmother's history of diabet es mellitus paternal grandparents 08/28/2017 Last Documented On 8 3:21PM ; [facility] Paternal history of family h istory of heart disease both sides-grandparetns,parents 08/28/2017 Last Documented On 8 3:21PM ; [facility] Spouse name: Rod 07/26/2013 Last Documented On 4 11:18AM ; [facility] Family history of heart disease both angella es 07/26/2013 Last Documented On 4 11:18AM ; [facility] Family history of hypercholesterolemia b oth sides 07/26/2013 Last Documented On 4 11:18AM ; [facility] Family history of hypertension MOM 04/16 Last Documented On 3 9:03AM ; [facility] Father CVA 01/23/2009 Last Documented On 9 11:06AM ; [facility] Cancer 07/28/2008 Last Documented On 9 10:34AM ; [facility] Review of Systems Review of Systems not supported for this document type No Review of Systems Recorded Mental Status Description No anxiety Functional Status No Functional Status Recorded Physical Exam Physical Exam not supported for this document type No Physical Exam Recorded Immunizations Includes: Immunizations in patient's chart Vaccine Dose # Date Site Reaction(s) Status Source HPV, (quadrivalent) Gardasil 1 11/02/2009 Left Arm Complete (Administered) [facility] Last Documented On 0 2:16PM ; [facility] HPV, (quadrivalent) Gardasil 2 01/04/2010 Left Arm Complete (Administered) [facility] Last Documented On 0 3:45PM ; [facility] HPV, (quadrivalent) Gardasil 3 05/07/2010 Complete (Reported) Patient Last Documented On 1 2:29PM ; [facility] Allergies Includes: Active, inactive, and resolved Allergies No Known Allergies Insurance Includes: Active Insurance Policies Plan Name Member ID Group # Subscriber Relationship Effect colin Dates 1 - [facility] [id number] MARKEL BELLE Self Clinical Notes Includes: Signed Clinical Notes starting from 03/11/2022 No Clinical Notes Recorded
--- OUTSIDE RECORDS SUMMARY | 2024-06-04 13:26 | XMS_ITS | Clinical Summary ---
Author Organization [facility] Address [address] [place] [address] Phone Care Team Providers Care Plate Colorer Name Role Phone ADALBERTO MOTTA DO Primary Care Provider [phone] PHOENIX MONTILLA MD Unavailable [phone] Reason for Visit and Chief Complaint previous history of abnormal Pap smear - The Chief Complaint is: Review colp results Problems Includes: Problems addressed during this encounter and other active Problems Current Visit Onset Date Resolved Date Provider Conditio n Status Previous Colposcopy 04/16/2012 DEA KAUR PERIANESTHESIA NURSE-BC Active Last Documented On 3 8:55AM ; [facility] Past Visits Onset Date Resolved Date Provider Condition Status Anxiety Disorder of Unknown ([place] III) Etiology 07/26/2013 DEA KAUR [facility] Active Last Documented On 4 11:10AM ; [facility] Plan of Treatment No Plan of Treatment Recorded Assessments Includes: Assessments from this encounter Findings - Cervical dysplasia--mild (SERGIO I) - Last Documented On 10/27/2017 10:25AM ; [facility] Medical Equipment - Implanted Devices Includes: Current Devices No Medical Equipment Recorded Medications Includes: Medications discussed during this encounter and other current Medications Discontinued / Stopped on this date JONNA PORTER-BC on 09/21/2017 Amoxicillin-Pot Clavulanate 875-125MG Oral Tablet Provider: JONNA ELLIOTT CAD ADMINISTRATOR-BC Diagnosis: Acute sinusitis, unspecified Last Documented On 8 9:59AM By JULIETH CEHW LPN ; [facility] Current Medications (continue as prescribed) Ambien 5 MG Tablet 03/11/2015 Provider: Diagnosis: Last Documented On 03/11/2015 9:37AM By Divina Rutledge Ramona ; [facility] Past Medications on file Benzonatate 200MG Oral Capsule 02/03/2017 - 02/13/2017 Provider: PAT [facility] Diagnosis: Acute sinusitis, unspecified TID PRN cough Last Documented On 7 8:30AM By PAT [facility] ; [facility] Augmentin 875-125MG Oral Tablet 02/03/2017 - 02/13/2017 Provider: PAT [facility] Diagnosis: Acute sinusitis, unspecified One tablet twice a day Last Documented On 7 8:30AM By PAT KEITH [facility] ; [facility] Flonase Allergy Relief 50 MCG/ACT Suspension 03/11/2015 - 04/10/2015 Provider: ADALBERTO MOTTA D.O. Diagnosis: Oth viral agents as the cause of diseases classd elswhr 2 sprays each nostril q day Last Documented On 03/11/2015 10:12AM By NICOLE BASSETT Ramona ; [facility] CeleXA 10 MG Tablet 03/11/2015 - 04/10/2015 Provider: ADALBERTO MOTTA D.O. Diagnosis: Anxiety disorder due to known physiological condition One tablet daily Last Documented On 03/11/2015 10:13AM By NICOLE BRITT ; [facility] Amoxicillin 500 MG Capsule 11/05/2014 - 11/19/2014 Pro vider: ADALBERTO MOTTA D.O. Diagnosis: One tablet three times a day Last Documented On 11/05/2014 10:30AM By ADALBERTO MOTTA DO ; [facility] Zolpidem Tartrate 10 MG Tablet 10/28/2014 - 11/27/2014 Provider: ADALBERTO MOTTA D.O. Diagnosis: PERSISTENT INSOM HARISH 1 PO QHS USE SPARINGLY,MUST LAST 30 DAYS Last Documented On 10/28/2014 2:29PM By ADALBERTO MOTTA DO ; [facility] Amoxicillin 500 MG OR TABS 02/26/2014 - 03/12/2014 Pro vider: ADALBERTO MOTTA D.O. Diagnosis: Last Documented On 02/26/2014 7:33PM By RADHAMES BRITT ; [facility] Medications Administered Includes: Administered Medications from this encounter No Administered Medications Recorded Vital Signs Includes: Vital Signs from this encounter Vital Name 10/27/2017 09:57A Blood Pressure Sitting (mmHg) 130/70 Height (in) 64 Weight (lb) 140 Body Mass Index (kg/m2) 24.0 Body Surface Area (m2) 1.7 Last Documented: On 10/27/2017 9:58AM ; [facility] Results Includes: Results discussed during this encounter No Results Recorded For Specified Dates History of Present Illness Includes: History of Present Illness from this encounter VINNY BELLE is a 32 year old female. - Patient denies any problems from the procedure - PRIMARY CARE PROVIDER : - Previous colposcopy on 10/05/2017 for HR HPV on otherwise normal paps 2 years in a row - Pathology report Reviewed and showed benign biopsies but detatched fragments in the ECC that may be SERGIO I - Patient tolerated procedure well Social History Description Last Updated Alcohol use seldom 08/28/2017 Last Documented On 8 9:49AM ; [facility] Non-smoker 08/28/2017 Last Documented On 8 9:49AM ; [facility] Sexually active with 1 partners in the l ast year 08/28/2017 Last Documented On 8 9:49AM ; [facility] Smoking Status Unknown Procedures and Surgical History Includes: Procedures from this encounter Procedures Code Diagnosis Performing Provider Service L ocation Service Date Clinical summary provided to patient Last Documented On 8 10:15AM ; [facility] Surgical History Last Updated Surgical / procedural history Nose surge ry 200807/12/2016 Last Documented On 8 9:49AM ; [facility] Medical History Includes: Medical History addressed during this encounter Description Last Updated LMP: 10/19/2017 10/27/2017 Last Documented On 8 10:25AM ; [facility] Result: abnormal HR HPV+ 2 years in a ro w 10/27/2017 Last Documented On 8 10:25AM ; [facility] Last pap smear date 08/28/2017 10/27/2017 Last Documented On 8 10:25AM ; [facility] History of human papilloma virus infecti on 08/28/2017 Last Documented On 8 9:49AM ; [facility] Sexually active 08/28/2017 Last Documented On 8 9:49AM ; [facility] Contraception: condoms 08/28/2017 Last Documented On 8 9:49AM ; [facility] Previous hospitalizations HEAD INJURY Last Documented On 8 9:49AM ; [facility] Family History Includes: Family History addressed during this encounter Description Last Updated Family history unchanged 08/28/2017 Last Documented On 8 9:49AM ; [facility] Maternal history of hypertension MOM 10/2017 Last Documented On 8 9:49AM ; [facility] Maternal history of pure hypercholestero lemia both sides 08/28/2017 Last Documented On 8 9:49AM ; [facility] Paternal grandmother's history of diabet es mellitus paternal grandparents 08/28/2017 Last Documented On 8 9:49AM ; [facility] Paternal history of family h istory of heart disease both sides-grandparetns,parents 08/28/2017 Last Documented On 8 9:49AM ; [facility] Spouse name: Rod 07/26/2013 Last Documented On 8 9:49AM ; [facility] Family history of heart disease both angella es 07/26/2013 Last Documented On 8 9:49AM ; [facility] Family history of hypercholesterolemia b oth sides 07/26/2013 Last Documented On 8 9:49AM ; [facility] Family history of hypertension MOM 04/16 Last Documented On 8 9:49AM ; [facility] Father CVA 01/23/2009 Last Documented On 8 9:49AM ; [facility] Cancer 07/28/2008 Last Documented On 8 9:49AM ; [facility] Review of Systems Includes: Review of Systems [...] Location Date Check-In Time Check-Out Time Diagnosis CONSULTATION PHOENIX MONTILLA MD 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 [id number] MARKEL BELLE Self Clinical Notes Includes: Clinical Notes from this encounter No Clinical Notes Recorded
== END 2024-06-04 12:36 | disposition home or self-care (01) ==
LOC: CHSIMG 12:36
PROVIDERS: PCP Obstetrics & Gynecology; Visit Provider Obstetrics & Gynecology
DX: Z12.31 Encounter for screening mammogram for malignant neoplasm of breast (principal); R92.8 Other abnormal and inconclusive findings on diagnostic imaging of breast
CPT/HCPCS: 77063; 77067

== ENCOUNTER 2024-07-02 10:25 | Outpatient (CLI) | payer BC, SELFPAY ==
--- NOTE | ~2024-07-02 | MM_ITS ---
EXAMINATION: MM diagnostic dequan LT w sonal HISTORY: Left breast asymmetry TECHNIQUE: Additional 3-D tomosynthesis images of the left breast were performed and synthetic 2-D im ages were generated. CAD analysis was submitted and interpreted. COMPARISON: 06/04/2024 BREAST PARENCHYMAL COMPOSITION:Dense: The breasts are extremely dense, which lowers the sensitivity o f mammography. FINDINGS: Left breast asymmetry effaces with spot compression. No persistent distortion or mass lesio n. No suspicious microcalcification. IMPRESSION: No mammographic evidence for malignancy. BI-RADS Category 1: Negative Reviewed, dictated and finalized at location M.
--- OUTSIDE RECORDS SUMMARY | 2024-07-02 10:43 | XMS_ITS | Clinical Summary ---
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
== END 2024-07-02 10:26 | disposition home or self-care (01) ==
LOC: CHSIMG 10:26
PROVIDERS: PCP Obstetrics & Gynecology; Visit Provider Obstetrics & Gynecology
DX: R92.8 Other abnormal and inconclusive findings on diagnostic imaging of breast (principal)
CPT/HCPCS: 77061; 77065; G0279